=== PATIENT | male | born 1955 | race Caucasian/White ===

== ENCOUNTER 2017-07-20 20:38 | Emergency (ER) | payer OTHER ==
[~2017-07-20] VITALS: Ht 185.4 cm; Wt 77.8 kg
[~2017-07-20 20:38] MED LIST: CELE100C PO; NEXI20CA PO
[2017-07-20 20:50] VITALS: BP 153/84; PULSE 73; RESP 18; TEMP 98.3; O2SAT 98
--- NOTE | 2017-07-21 18:11 | EKG ---
Date Performed: 07/20/2017 Time Performed: 21:03:39 PTAGE: 61 years EKG: Sinus rhythm NORMAL ECG INTERPRETATION BASED ON A DEFAULT AGE OF 38 YEARS NO PREVIOUS TRACING DOCTOR: Caro Sandy Interpretating Date/Time 07/21/2017 18:09:13
== END 2017-07-20 21:20 | disposition left against medical advice (07) ==
LOC: PHED 20:38
DX: R07.9 Chest pain, unspecified (principal)
CPT/HCPCS: 93005; 99281

== ENCOUNTER 2018-02-15 00:04 | Observation (INO) | payer OTHER ==
[~2018-02-15] VITALS: Ht 185.4 cm; Wt 73.8 kg
[2018-02-15] VITALS (8 sets, daily range): BP systolic 154–187; BP diastolic 60–91; PULSE 52–83; RESP 16–20; TEMP 97.4–98.8; O2SAT 95–97
[2018-02-15] MEDS ORDERED: NITROGLYCERIN 0.4 MG SL 25 TABS/BTL SL PRN (00:15)
[2018-02-15] MEDS ORDERED: ASPIRIN 325 MG TAB PO ONE (00:15)
[2018-02-15 00:36] LABS: AUTOMATED NEUTROPHIL # 2.3 TH/MM3 (1.8-7.7); BASOPHIL % 1.3 % (0.0-2.0); EOSINOPHIL % 1.1 % (0.0-4.0); HEMATOCRIT 37.1 % (39.0-51.0); HEMOGLOBIN 12.9 GM/DL (13.0-17.0); LYMPH % 26.5 % (9.0-44.0); MEAN CELL VOLUME 95.8 FL (80.0-100.0); MEAN CORPUSCULAR HEMOGLOBIN 33.3 PG (27.0-34.0); MEAN CORPUSCULAR HGB CONC 34.7 % (32.0-36.0); MEAN PLATELET VOLUME 8.8 FL (7.0-11.0); MONOCYTE # 0.4 TH/MM3 (0-0.9); NEUT % 61.1 % (16.0-70.0); PLATELET COUNT 49 TH/MM3 (150-450); RED BLOOD COUNT 3.87 MIL/MM3 (4.50-5.90); RED CELL DISTRIBUTION WIDTH 14.4 % (11.6-17.2); WHITE BLOOD COUNT 3.7 TH/MM3 (4.0-11.0)
--- NOTE | 2018-02-15 00:36 | PD ---
HPI Chief Complaint: Chest Pain Time Seen by Provider: 00:15 Travel History International Travel<30 days: No Contact w/Intl Traveler<30days: No History of Present Illness HPI 62yo M with PMH of GERD on nexium here with c/o midsternal chest pain for 2 hours today. Pt was just sitting when it started. It is pressure like and nonradiating. Has tingling in right hand. Denies any sob, diaphoresis, nausea , vomiting. Denies any fever, cough, abdominal pain, focal weakness. Pt has never had this pain before. Does not have a hand cigar maker. +Cig smoker. Denies any cocaine or drug use. PFSH Past Medical History GERD: Yes Social History Alcohol Use: Yes (ONCE A WEEK COCKTAILS) Tobacco Use: Yes (09/14 PPD) Substance Use: No Allergies-Medications (Allergen,Severity, Reaction): Coded Allergies: No Known Allergies (Unverified Allergy, Unknown, 02/15/18) Reported Meds & Prescriptions Reported Meds & Active Scripts Active Reported Nexium (Esomeprazole DR) 40 Mg Capdr 40 Mg PO DAILY Review of Systems Except as stated in HPI: all other systems reviewed are Neg Physical Exam Narrative GENERAL: 62yo M in mild distress. SKIN: Focused skin assessment warm/dry. HEAD: Atraumatic. Normocephalic. EYES: Pupils equal and round. No scleral icterus. No injection or drainage. ENT: No nasal bleeding or discharge. Mucous membranes pink and moist. NECK: Trachea midline. No JVD. CARDIOVASCULAR: Regular rate and rhythm. No murmur appreciated. RESPIRATORY: No accessory muscle use. Clear to auscultation. Breath sounds equal bilaterally. GASTROINTESTINAL: Abdomen soft, non-tender, nondistended. MUSCULOSKELETAL: No obvious deformities. No clubbing. No cyanosis. No edema. NEUROLOGICAL: Awake and alert. No obvious cranial nerve deficits. Motor grossly within normal limits. Normal speech. PSYCHIATRIC: Appropriate mood and affect; insight and judgment normal. Data Data Last Documented VS Vital Signs Date Time Temp Pulse Resp B/P (MAP) Pulse Ox O2 Delivery O2 Flow Rate FiO2 02/15/18 01:17 76 16 154/76 (102) 95 Room Air 02/15/18 00:10 98.8 Orders Orders Basic Metabolic Panel (Bmp) (02/15/18 00:15) Complete Blood Count With Diff (02/15/18 00:15) Magnesium (Mg) (02/15/18 00:15) Prothrombin Time / Inr (Pt) (02/15/18 00:15) Act Partial Throm Time (Ptt) (02/15/18 00:15) Troponin I (02/15/18 00:15) Chest, Single Ap (02/15/18 00:15) Aspirin (Aspirin) (02/15/18 00:15) Nitroglycerin Sl (Nitrostat Sl) (02/15/18 00:15) Potassium Chloride (Kcl) (02/15/18 01:00) Potassium Chlor 20 Meq Premix (Kcl 20 Me (02/15/18 01:00) Place In Observation (02/15/18 01:49) Activity Bed Rest With Brp (02/15/18 01:49) Vital Signs (Adult) Q4H (02/15/18 01:49) Cardiac Rhythm .As Directed (02/15/18 01:49) Notify Dr: Other .PRN (02/15/18 01:49) Notify Parameters (02/15/18 01:49) Resp Oxygen Nasal Cannula (02/15/18 ) Diet Npo (02/15/18 Breakfast) Ckmb (Isoenzyme) Profile (02/15/18 03:20) Ckmb (Isoenzyme) Profile (02/15/18 06:20) Troponin I (02/15/18 03:20) Troponin I (02/15/18 06:20) Electrocardiogram (02/15/18 03:20) Electrocardiogram (02/15/18 06:20) ^ Obtain (02/15/18 01:49) Sodium Chlor 0.9% 1000 Ml Inj (Ns 1000 M (02/15/18 01:49) Sodium Chloride 0.9% Flush (Ns Flush) (02/15/18 02:00) Sodium Chloride 0.9% Flush (Ns Flush) (02/15/18 09:00) Acetaminophen (Tylenol) (02/15/18 02:00) Acetamin-Hydrocod 325-7.5 Mg ([place] 7.5 (02/15/18 02:00) Morphine Inj (Morphine Inj) (02/15/18 02:00) Ondansetron Inj (Zofran Inj) (02/15/18 02:00) Hotel Desk Clerk / Telemetry VISHAL.Q8H (02/15/18 01:49) Labs Laboratory Tests Test 02/15/18 00:20 White Blood Count 3.7 TH/MM3 Red Blood Count 3.87 MIL/MM3 Hemoglobin 12.9 GM/DL Hematocrit 37.1 % Mean Corpuscular Volume 95.8 FL Mean Corpuscular Hemoglobin 33.3 PG Mean Corpuscular Hemoglobin Concent 34.7 % Red Cell Distribution Width 14.4 % Platelet Count 49 TH/MM3 Mean Platelet Volume 8.8 FL Neutrophils (%) (Auto) 61.1 % Lymphocytes (%) (Auto) 26.5 % Monocytes (%) (Auto) 10.0 % Eosinophils (%) (Auto) 1.1 % Basophils (%) (Auto) 1.3 % Neutrophils # (Auto) 2.3 TH/MM3 Lymphocytes # (Auto) 1.0 TH/MM3 Monocytes # (Auto) 0.4 TH/MM3 Eosinophils # (Auto) 0.0 TH/MM3 Basophils # (Auto) 0.0 TH/MM3 CBC Comment AUTO DIFF Differential Comment AUTO DIFF CONFIRMED Platelet Estimate LOW Platelet Morphology Comment NORMAL Prothrombin Time 12.0 SEC Prothromb Time International Ratio 1.2 RATIO Activated Partial Thromboplast Time 26.5 SEC Blood Urea Nitrogen 3 MG/DL Creatinine 0.74 MG/DL Random Glucose 97 MG/DL Calcium Level 8.7 MG/DL Magnesium Level 1.5 MG/DL Sodium Level 133 MEQ/L Potassium Level 2.5 MEQ/L Chloride Level 94 MEQ/L Carbon Dioxide Level 25.8 MEQ/L Anion Gap 13 MEQ/L Estimat Glomerular Filtration Rate 106 ML/MIN Troponin I LESS THAN 0.02 NG/ML [facility] Medical Decision Making Medical Screen Exam Complete: Yes Emergency Medical Condition: Yes Interpretation(s) EKG: NSR 78bpm. Normal axis. QRS narrow. ST depression V3-V6 that is new from prior on 07/2017. EKG #2: Sinus bradycardia at 58bpm. Normal axis. ST depression in V3 is improved but there is still mild ST depression in V3-V6. Differential Diagnosis ACS vs. GERD vs. musculoskeletal pain Narrative Course 62yo M with midsternal chest pain that is pressure like. Pt has never had this pain before. EKG concerning with new ST depression compared to prior. Labs reviewed, WBC low at 3.7, H/H low at 12.9/37.1. Thrombocytopenic at 49,000. Pt now said he has cirrhosis years ago. Denies any bleeding. Hypokalemia at 2.5, replaced orally and with IV KCl. Mild hyponatremia at 133. Troponin negative. Magnesium 1.5. CXR negative. Pt given aspirin and is now chest pain free. Did not need nitroglycerin. Never had cardiac work up. Will admit pt for chest pain work up as well as monitoring for hypokalemia. Discussed with Dr. Billy and accepted to her service. Diagnosis Primary Impression: Chest pain Qualified Codes: R07.9 - Chest pain, unspecified Additional Impression: Hypokalemia Admitting Information Admitting Physician Requests: Mariza White DO Feb 15, 2018 00:36
[2018-02-15] MEDS ORDERED: NEXI40CA PO (00:39)
[2018-02-15 00:51] LABS: BICARBONATE 25.8 MEQ/L (21.0-32.0); BLOOD UREA NITROGEN 3 MG/DL (7-18); CALCIUM 8.7 MG/DL (8.5-10.1); CHLORIDE 94 MEQ/L (98-107); CREATININE 0.74 MG/DL (0.60-1.30); GLOMERULAR FILTRATION RATE 106 ML/MIN (>89); GLUCOSE,RANDOM 97 MG/DL (74-106); MAGNESIUM 1.5 MG/DL (1.5-2.5); SODIUM (NA) 133 MEQ/L (136-145); TROPONIN I LESS THAN 0.02 NG/ML (0.02-0.05)
--- NOTE | 2018-02-15 00:54 | RADRPT ---
EXAM DATE: 02/15/2018 12:48 AM EDT AGE/SEX: 62 years / Male INDICATIONS: Chest pain for 2 hours CLINICAL DATA: This is the patient's initial encounter. Patient reports that signs and symptoms have been present for 1 day and indicates a pain score of 7/10. MEDICAL/SURGICAL HISTORY: None. None. COMPARISON: No prior exams available for comparison. FINDINGS: A single AP view of the chest demonstrates the lungs to be symmetrically aerated without evidence of mass, infiltrate or effusion. The cardiomediastinal contours are unremarkable. Osseous structures a re intact. CONCLUSION: No active disease. Electronically signed by: Dmitriy Horn MD 02/15/2018 12:53 AM EDT
[2018-02-15 01:00] LABS: INTERNATIONAL NORMALIZED RATIO 1.2 RATIO
[2018-02-15] MEDS ORDERED: POTASSIUM CHLORIDE 20 MEQ CONTROLLED RELEASE TAB PO ONE ×2 (01:00→09:00)
[2018-02-15] MEDS ORDERED: POTASSIUM CHLOR 20 MEQ PREMIX 100 ML IV ONE (01:00)
[2018-02-15] MEDS ORDERED: SODIUM CHLOR 0.9% 1000 ML INJ 1,000 ML IV SCH (01:49)
[2018-02-15] MEDS ORDERED: ACETAMINOPHEN/HYDROcodone 325 MG/7.5 MG TAB PO PRN (02:00)
[2018-02-15] MEDS ORDERED: ONDANSETRON HCL 4 MG/2 ML VIAL IV PUSH PRN (02:00)
[2018-02-15] MEDS ORDERED: SODIUM CHLORIDE 0.9% FLUSH 10 ML FLUSH IV FLUSH PRN (02:00)
[2018-02-15] MEDS ORDERED: ACETAMINOPHEN 500 MG CPLT PO PRN (02:00)
[2018-02-15] MEDS ORDERED: MORPHINE SULFATE 4 MG/ML INJ IV PUSH PRN (02:00)
[2018-02-15 03:32] LABS: TROPONIN I LESS THAN 0.02 NG/ML (0.02-0.05)
[2018-02-15 07:21] LABS: TROPONIN I LESS THAN 0.02 NG/ML (0.02-0.05)
[2018-02-15 08:27] LABS: CHLORIDE 97 MEQ/L (98-107); SODIUM (NA) 135 MEQ/L (136-145)
[2018-02-15 08:29] LABS: BICARBONATE 27.5 MEQ/L (21.0-32.0); BLOOD UREA NITROGEN 6 MG/DL (7-18); CALCIUM 8.3 MG/DL (8.5-10.1)
[2018-02-15 08:30] LABS: GLUCOSE,RANDOM 92 MG/DL (74-106)
[2018-02-15 08:44] LABS: CREATININE 0.78 MG/DL (0.60-1.30); GLOMERULAR FILTRATION RATE 100 ML/MIN (>89)
--- NOTE | 2018-02-15 08:48 | HHI.HP ---
[facility] Service [facility] Primary Care Physician Non-Staff Admission Diagnosis Chest pain, hypokalemia Diagnoses: (1) Chest pain Diagnosis: Principal (2) Hypokalemia Diagnosis: Principal Chief Complaint: Chest pain Travel History International Travel<30 Days: No Contact w/Intl Traveler <30 Da: No Traveled to Known Affected Are: No History of Present Illness 62-year-old male with known history of gastroesophageal reflux, tobacco use who presented to the emergency department because of chest discomfort. Patient states that he was laying in bed last night his normal state of health until about 1030 when he developed a aching discomfort in the left side of his chest which he states was a 5/10 on a pain scale. He indicates shortly after that he developed a pain in his right arm which he described as a throbbing pain a 7/10 on a pain scale. This persisted and because it did not improve he came to the emergency department for evaluation. Patient denies any nausea, vomiting, shortness of breath, dyspnea, diaphoresis, lightheadedness, dizziness. Patient denies any previous cardiac history or workup. 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 [place] drink approximately 4-32 oz of water daily. He does continue to smoke 1/4 pack of cigarettes a day. Patient was evaluated emergency department given aspirin with complete resolution of his pain. EKG was performed which did show new finding on EKG with inverted T waves in V2 and V3. ER physician recommended patient be observed in the chest pain center for further evaluation. Review of Systems Cardiovascular: COMPLAINS OF: Chest pain Musculoskeletal: COMPLAINS OF: Muscle aches Except as stated in HPI: all other systems reviewed are Neg Past Family Social History Past Medical History Gastroesophageal reflux Chronic tobacco use Past Surgical History Right hip replacement Reported Medications Reported Meds & Active Scripts Active Reported Nexium (Esomeprazole DR) 40 Mg Capdr 40 Mg PO DAILY Allergies: Coded Allergies: No Known Allergies (Unverified Allergy, Unknown, 02/15/18) Family History Family history reviewed and patient denies any history of heart disease, lung disease, diabetes, cancer, seizure, stroke. He is unaware of any significant family history Social History Patient does smoke 1/4 pack of cigars a day since he was 13 years old. He does drink 2 alcoholic beverages on the weekends. Patient denies any illicit drug use Physical Exam Vital Signs Vital Signs Date Time Temp Pulse Resp B/P (MAP) Pulse Ox O2 Delivery O2 Flow Rate FiO2 02/15/18 04:33 98.0 61 20 160/60 (93) 97 02/15/18 03:14 02/15/18 03:06 62 16 166/86 (112) 97 Room Air 02/15/18 03:04 95 21 02/15/18 01:17 76 16 154/76 (102) 95 Room Air 02/15/18 00:46 Room Air 02/15/18 00:35 83 18 160/82 (108) 96 Room Air 02/15/18 00:10 98.8 82 16 187/91 (123) 97 Physical Exam GENERAL: Well-developed, well-nourished, in no acute distress. alert and orientated HEENT: Head is normocephalic without any lesions or masses noted. Facial features are symmetric. Eyes: Pupils equal round reactive to light. Extraocular muscles are intact. Conjunctivae were clear. Oropharyngeal: Pharynx without any erythema edema. Tongue is midline without deviation. Buccal mucosa is moist without any masses or lesions NECK: Supple without any masses. Trachea midline no deviation. No JVD, no bruits are appreciated CARDIAC: Regular rhythm, regular rate. S1/S2 are heard. No murmurs gallops or rubs. LUNGS: Clear to auscultation bilaterally. No wheeze, rhonchi or rales. No use of accessory muscles on inspiration or expiration. ABDOMEN: Soft, nontender. Nondistended. Bowel sounds heard in all 4 quadrants. No organomegaly or masses. Negative rebound, negative guarding EXTREMITIES: No edema, pulses are equal bilaterally. No cyanosis or clubbing NEUROLOGY: Mood and affect appear appropriate. Cranial nerves II through XII grossly intact. Muscle strength 5/5 in upper and lower extremities bilaterally. Deep tendon reflexes are 2+ in upper and lower extremities bilaterally. Laboratory Laboratory Tests Test 02/15/18 00:20 02/15/18 03:05 02/15/18 06:40 White Blood Count 3.7 Red Blood Count 3.87 Hemoglobin 12.9 Hematocrit 37.1 Mean Corpuscular Volume 95.8 Mean Corpuscular Hemoglobin 33.3 Mean Corpuscular Hemoglobin Concent 34.7 Red Cell Distribution Width 14.4 Platelet Count 49 Mean Platelet Volume 8.8 Neutrophils (%) (Auto) 61.1 Lymphocytes (%) (Auto) 26.5 Monocytes (%) (Auto) 10.0 Eosinophils (%) (Auto) 1.1 Basophils (%) (Auto) 1.3 Neutrophils # (Auto) 2.3 Lymphocytes # (Auto) 1.0 Monocytes # (Auto) 0.4 Eosinophils # (Auto) 0.0 Basophils # (Auto) 0.0 CBC Comment AUTO DIFF Differential Comment AUTO DIFF CONFIRMED Platelet Estimate LOW Platelet Morphology Comment NORMAL Prothrombin Time 12.0 Prothromb Time International Ratio 1.2 Activated Partial Thromboplast Time 26.5 Blood Urea Nitrogen 3 6 Creatinine 0.74 Random Glucose 97 92 Calcium Level 8.7 8.3 Magnesium Level 1.5 Sodium Level 133 135 Potassium Level 2.5 3.2 Chloride Level 94 97 Carbon Dioxide Level 25.8 27.5 Anion Gap 13 11 Estimat Glomerular Filtration Rate 106 Troponin I LESS THAN 0.02 LESS THAN 0.02 LESS THAN 0.02 Total Creatine Kinase 280 285 Creatine Kinase MB 1.3 1.6 Result Diagram: 02/15/18 0020 02/15/18 0640 Imaging Last Impressions Chest X-Ray 02/15/18 0015 Signed Impressions: CONCLUSION: No active disease. Caprini VTE Risk Assessment Caprini VTE Risk Assessment: No/Low Risk (score <= 1) Caprini Risk Assessment Model Point Value = 1 Point Value = 2 Point Value = 3 Point Value = 5 Age 41-60 Minor surgery BMI > 25 kg/m2 Swollen legs Varicose veins or History of unexplained or recurrent spontaneous Oral contraceptives or hormone replacement Sepsis (< 1 month) Serious lung disease, including pneumonia (< 1 month) Abnormal pulmonary function Acute myocardial infarction Congestive heart failure (< 1 month) History of inflammatory bowel disease Medical patient at bed rest Age 61-74 Arthroscopic surgery Major open surgery (> 45 min) Laparoscopic surgery (> 45 min) Malignancy Confined to bed (> 72 hours) Immobilizing plaster cast Central venous access Age >= 75 History of VTE Family history of VTE Factor V Leiden Prothrombin [id number] Lupus anticoagulant Anticardiolipin antibodies Elevated serum homocysteine Heparin-induced thrombocytopenia Other congenital or acquired thrombophilia Stroke (< 1 month) Elective arthroplasty Hip, pelvis, or leg fracture Acute spinal cord injury (< 1 month) Prophylaxis Regimen Total Risk Factor Score Risk Level Prophylaxis Regimen 0-1 Low Early ambulation 2 Moderate Order ONE of the following: *Sequential Compression Device (SCD) *Heparin 5000 units SQ BID 3-4 Higher Order ONE of the following medications: *Heparin 5000 units SQ TID *Enoxaparin/Lovenox 40 mg SQ daily (WT < 150 kg, CrCl > 30 mL/min) *Enoxaparin/Lovenox 30 mg SQ daily (WT < 150 kg, CrCl > 10-29 mL/min) *Enoxaparin/Lovenox 30 mg SQ BID (WT < 150 kg, CrCl > 30 mL/min) AND/OR *Sequential Compression Device (SCD) 5 or more Highest Order ONE of the following medications: *Heparin 5000 units SQ TID (Preferred with Epidurals) *Enoxaparin/Lovenox 40 mg SQ daily (WT < 150 kg, CrCl > 30 mL/min) *Enoxaparin/Lovenox 30 mg SQ daily (WT < 150 kg, CrCl > 10-29 mL/min) *Enoxaparin/Lovenox 30 mg SQ BID (WT < 150 kg, CrCl > 30 mL/min) AND *Sequential Compression Device (SCD) Assessment and Plan Assessment and Plan Chest pain, atypical -Patient with increased risk factors include age, male, tobacco use -Patient has been ruled out for acute coronary event with serial cardiac enzymes that have remained negative -Serial EKGs do show inverted T waves in lead V2 and V3, this appears to be a change when comparing to July 2017. -Myocardial perfusion study was performed and indicated no signs of ischemia, low risk -Patient continued on aspirin, nitroglycerin as needed, morphine for pain control -Continue monitor telemetry Hypokalemia -Patient is not on any medications or indicate any significant nausea, vomiting , diarrhea -Patient does admit to significant water intake with 1 gallon of water daily, remaining electrolytes to also reflect possible increase water intake with low sodium and low chloride. -Status post potassium replacement -Patient counseled on decreasing amount of water daily and adding in sports drinks for elective replacement Elevated blood pressure readings -During hospitalization patient has had psych blood pressure anywhere from 154- 187. -This was discussed with the patient extensively, he indicates that his prior medical doctor is monitoring his blood pressure at this time as well as he is monitoring at home. He has follow-up with the prior medical doctor this coming week in order to reevaluate his blood pressure and possibly start him on medication. -Patient defers any management at this time. He is going to await his appointment with his primary medical doctor DVT prevention -Low risk, early ambulation Discharge disposition Discharge home in stable condition Activity: Ad susie. Diet: Regular diet Medication per medication reconciliation Follow-up with primary medical doctor in 1 week Problem Qualifiers (1) Chest pain: Qualified Codes: R07.9 - Chest pain, unspecified Zak Chavez Feb 15, 2018 08:48
[2018-02-15] MEDS ORDERED: SODIUM CHLORIDE 0.9% FLUSH 10 ML FLUSH IV FLUSH SCH (09:00)
[2018-02-15] MEDS ORDERED: REGADENOSON INJ 0.4 MG/5 ML SYR IV ONE (10:34)
--- NOTE | 2018-02-15 13:09 | RADRPT ---
EXAM DATE: 02/15/2018 11:18 AM EDT AGE/SEX: 62 years / Male INDICATIONS:Angina. Abnormal EKG Mid chest pain for one day. CLINICAL DATA: This is the patient's initial encounter. Patient reports that signs and symptoms have been present for 1 day and indicates a pain score of 7/10. MEDICAL/SURGICAL HISTORY: Gastroesophageal reflux disease. . Hip replacement. COMPARISON: No prior exams available for comparison. No external comparison. DOSE: 8.7 mCi Tc 99m Myoview at rest 26.2 mCi [id number] at stress 0.4 mg Lexiscan STRESS SYMPTOMS: None. EJECTION FRACTION: 65 % TECHNIQUE: The patient underwent pharmacologic stress with infusion of prescribed dose. Continuous ECG tracing was monitored during stress. Gated SPECT imaging was performed after stress and conventi onal SPECT imaging was performed at rest. The examination was performed on a SPECT/CT scanner, both attenuation and non-corrected datasets were reviewed. FINDINGS: Distribution: The maximum perfused segment at stress is in the inferoseptal wall. Perfusion Study: The pattern of perfusion at stress is within normal limits. Gated Study: There are intact wall motion and wall thickening without hypokinetic or dyskinetic segm ents. The ejection fraction is calculated at 65%. RISK CATEGORY: Low (<1% Annual Motality Rate) CONCLUSION: 1. Left ventricle perfusion is within normal limits. No fixed or reversible perfusion defect is iden tified. 2. Normal left ventricle ejection fraction and wall motion. Electronically signed by: Steven Catalan MD 02/15/2018 1:08 PM EDT
--- NOTE | 2018-02-15 13:19 | HHI.DCPOC ---
Discharge Care Plan Diagnosis: (1) Chest pain (2) Hypokalemia Goals to Promote Your Health * To prevent worsening of your condition and complications * To maintain your health at the optimal level Directions to Meet Your Goals Take your medications as prescribed Follow your dietary instruction Follow activity as directed Keep your appointments as scheduled Take your immunizations and boosters as scheduled If your symptoms worsen call your PCP, if no PCP go to Urgent Care Center or Emergency Room Smoking is Dangerous to Your Health. Avoid second hand smoke Call the 24-hour hour crisis hotline for domestic abuse at Zak Chavez Feb 15, 2018 13:19
--- NOTE | 2018-02-15 14:33 | TR ---
Date Performed: 02/15/2018 Time Performed: 10:43:26 DOCTOR: Bill Kapadia DRUG LIST: CLINICAL HISTORY: ANGINA REASON FOR TEST: Angina REASON FOR ENDING: OBSERVATION: CONCLUSION: Lexiscan stress test was performed under standard four minute protocol. Radionuclide was injected one minute prior to ending the test. No electrocardiographic abormalities were present to suggest ischemia. Nuclear imaging and interpretation are pending. COMMENTS:
--- NOTE | 2018-02-15 15:35 | EKG ---
Date Performed: 02/15/2018 Time Performed: 05:33:12 PTAGE: 62 years EKG: Sinus rhythm WITH OCCASIONAL VENTRICULAR PREMATURE COMPLEXES POSSIBLE LEFT ATRIAL ENLARGEMENT MODERATE T-WAVE ABN ORMALITY, CONSIDER ANTERIOR ISCHEMIA Since previous tracing, no significant change noted ABNORMAL ECG PREVIOUS TRACING : 07/20/2017 21.03 DOCTOR: Cheri Blount Interpretating Date/Time 02/15/2018 15:33:05
--- NOTE | 2018-02-15 18:38 | EKG ---
Date Performed: 02/15/2018 Time Performed: 03:14:12 PTAGE: 62 years EKG: SINUS BRADYCARDIA POSSIBLE LEFT ATRIAL ENLARGEMENT Nonspecific septal T wave changes. Since previous tracing, no significant change noted BORDERLINE ECG PREVIOUS TRACING : 07/20/2017 21.03 DOCTOR: Cheri Blount Interpretating Date/Time 02/16/2018 06:50:22
== END 2018-02-15 14:41 | disposition home or self-care (01) ==
LOC: PHED 00:04 → PHEDA 01:52 → PH3A 03:23
PROVIDERS: ADMIT Family Medicine; ATTEND Family Medicine
DX: R07.9 Chest pain, unspecified (principal); R20.2 Paresthesia of skin; K21.9 Gastro-esophageal reflux disease without esophagitis; F17.200 Nicotine dependence, unspecified, uncomplicated; R00.1 Bradycardia, unspecified; D72.819 Decreased white blood cell count, unspecified; D69.6 Thrombocytopenia, unspecified; K74.60 Unspecified cirrhosis of liver; E87.6 Hypokalemia; E87.1 Hypo-osmolality and hyponatremia; R03.0 Elevated blood-pressure reading, without diagnosis of hypertension; R94.31 Abnormal electrocardiogram [ECG] [EKG]
CPT/HCPCS: 71045; 78452; 80048; 82550; 82552; 83735; 84484; 85025; 85610; 85730; 93005; 93017; 96365; 96366; 99285; A9502; G0378; J2785; J3480; J7030

== ENCOUNTER 2018-04-02 16:52 | Observation (INO) ==
--- NOTE | 2018-04-02 17:59 | ED ---
[facility] General Chief complaint: GI Bleed Stated complaint: BLOOD IN URINE/STOOL Time Seen by Provider: 04/02/18 17:43 Source: patient Mode of arrival: ambulatory Limitations: no limitations History of Present Illness HPI narrative: 62yo M with PMH of cirrhosis here with c/o feeling lethargic, gross hematuria and dark stool for a few days. Denies any fever, chest pain, sob, n/v, abdominal pain. +Diarrhea. Pt went to a new primary care physician today and was sent to the ED. Related Data Home Medications Medication Instructions Recorded Confirmed esomeprazole magnesium [Nexium] 40 mg PO DAILY 04/02/18 04/02/18 Allergies Allergy/AdvReac Type Severity Reaction Status Date / Time No Known Allergies Allergy Verified 04/02/18 17:35 Review of Systems ROS Unobtainable All other systems reviewed negative except as stated in [facility] Medical History Medical History GERD (gastroesophageal reflux disease) (Acute) History of cirrhosis of liver (Acute) Surgical History Surgical History History of right hip replacement (Acute) Social History Social History Substance History: No History of Abuse Second Hand Smoke Exposure: No Smoking Status: Heavy tobacco smoker Tobacco Type: Cigarettes How Often Do You Have a Drink Containing Alcohol: 2 to 4 times a month Recent Travel in [facility] within the Last 8 Weeks: No Recent Out of Country Travel within the Last 8 Weeks: No Immunization History Tetanus Immunization: Unsure Hx Influenza Vaccine This Season: Yes Exam Narrative Exam Narrative: GENERAL: 62yo M in mild distress. SKIN: Focused skin assessment warm/dry. HEAD: Atraumatic. Normocephalic. EYES: Pupils equal and round. +scleral icterus. No injection or drainage. ENT: No nasal bleeding or discharge. Mucous membranes pink and moist. NECK: Trachea midline. No JVD. CARDIOVASCULAR: Regular rate and rhythm. No murmur appreciated. RESPIRATORY: No accessory muscle use. Clear to auscultation. Breath sounds equal bilaterally. GASTROINTESTINAL: Abdomen soft, non-tender, nondistended. RECTAL: Brown stool. +Hemaprompt. MUSCULOSKELETAL: No obvious deformities. No clubbing. No cyanosis. No edema. NEUROLOGICAL: Awake and alert. No obvious cranial nerve deficits. Motor grossly within normal limits. Normal speech. PSYCHIATRIC: Appropriate mood and affect; insight and judgment normal. Procedures Hemaprompt Stool Procedural Steps Taken: specimen placed in appropriate test area Hemaprompt Stool Result: positive Course Initial Documented Vital Signs Temperature 98.9 F 04/02/18 16:54 Pulse Rate 80 04/02/18 16:54 Respiratory Rate 16 04/02/18 16:54 Blood Pressure 159/77 H 04/02/18 16:54 Pulse Oximetry 99 04/02/18 16:54 Last Documented Vital Signs Temperature 98.9 F 04/02/18 16:54 Pulse Rate 69 04/02/18 23:15 Respiratory Rate 18 04/02/18 22:12 Blood Pressure 156/79 H 04/02/18 22:12 Pulse Oximetry 96 04/02/18 23:15 Medical Decision Making MDM Narrative Medical decision making narrative: 62yo M here with generalized weakness, gross hematuria, blood in stool for a few days. Pt has history of cirrhosis. Labs reviewed, no leukocytosis. H/H low a 12.3/34.7. Hypokalemia at 2.5. Hyponatremia at 131. Hemaprompt positive. Pt has not had colonoscopy or endoscopy for 5 years. Pt given KCl 30mEq PO, will give IV KCl as well and monitor him overnight on telemetry with GI consult. Differential Diagnosis Differential Diagnosis: Bleeding from thrombocytopenia vs. GI bleed vs. hyperammonemia Lab Data Result diagrams: 04/02/18 18:03 04/02/18 18:03 Lab Results 04/02/18 04/02/18 04/02/18 Range/Units 18:03 18:03 18:03 CBC w Diff Slide review pending WBC 5.4 (4.0-11.0) th/mm3 RBC 3.57 L (4.50-5.90) mil/mm3 Hgb 12.3 L (13.0-17.0) gm/dL Hct 34.7 L (39.0-51.0) % MCV 97.3 (80.0-100.0) fL MCH 34.6 H (27.0-34.0) pg MCHC 35.5 (32.0-36.0) % RDW 16.6 (11.6-17.2) % Plt Count 59 L (150-450) th/mm3 MPV 9.3 (7.0-11.0) fL WBC Differential Manual diff final Seg Neuts % (Manual) 65 (16-70) % Band Neuts % (Manual) 2 (0-6) % Lymphocytes % (Manual) 22 (9-44) % Monocytes % (Manual) 9 H (0-8) % Eosinophils % (Manual) 1 (0-4) % Basophils % (Manual) 1 (0-2) % Abs Neuts (Manual) 3.6 (1.8-7.7) th/mm3 Differential Comment . Platelet Estimate Low L (Normal) Platelet Morphology Normal (Normal) RBC Morphology Normal (Normal) PT 13.3 H (9.8-11.6) sec INR 1.3 Ratio APTT 27.9 (24.3-30.1) sec Sodium 131 L (136-145) meq/L Potassium 2.5 L* (3.5-5.1) meq/L Chloride 93 L (98-107) meq/L Carbon Dioxide 30.3 (21.0-32.0) meq/L Anion Gap 8 (5-15) meq/L BUN 14 (7-18) mg/dL Creatinine 1.10 (0.60-1.30) mg/dL Estimated GFR 67 L (>89) mL/min Random Glucose 97 (74-106) mg/dL Calcium 8.4 L (8.5-10.1) mg/dL Magnesium 1.7 (1.5-2.5) mg/dL Total Bilirubin 14.4 H (0.2-1.0) mg/dL AST 170 H (15-37) U/L ALT 44 (12-78) U/L Alkaline Phosphatase 154 H (45-117) U/L Ammonia (11-32) mcmol/L Total Creatine Kinase 284 (39-308) U/L Total Protein 7.1 (6.4-8.2) g/dL Albumin 3.0 L (3.4-5.0) g/dL Urine Color (Yellw/Straw) Urine Clarity (Clear) Urine pH (5.0-8.5) Ur Specific [place] (1.002-1.035) Urine Protein (Neg-Trace) mg/dL Urine Glucose (UA) (Negative) mg/dL Urine Ketones (Negative) mg/dL Urine Occult Blood (Negative) Urine Nitrate (Negative) Urine Bilirubin (Negative) Urine Ictotest (Negative) Urine Urobilinogen (Less than 2) mg/dL Ur Leukocyte Esterase (Negative) Urine RBC (0-3) /hpf Urine WBC (0-5) /hpf Ur Squamous Epith Cells (0-5) /hpf Micro UA Comment Urine Culture Comments Blood Type Blood Type Recheck Antibody Screen 04/02/18 04/02/18 04/02/18 Range/Units 18:03 18:03 18:57 CBC w Diff WBC (4.0-11.0) th/mm3 RBC (4.50-5.90) mil/mm3 Hgb (13.0-17.0) gm/dL Hct (39.0-51.0) % MCV (80.0-100.0) fL MCH (27.0-34.0) pg MCHC (32.0-36.0) % RDW (11.6-17.2) % Plt Count (150-450) th/mm3 MPV (7.0-11.0) fL WBC Differential Seg Neuts % (Manual) (16-70) % Band Neuts % (Manual) (0-6) % Lymphocytes % (Manual) (9-44) % Monocytes % (Manual) (0-8) % Eosinophils % (Manual) (0-4) % Basophils % (Manual) (0-2) % Abs Neuts (Manual) (1.8-7.7) th/mm3 Differential Comment Platelet Estimate (Normal) Platelet Morphology (Normal) RBC Morphology (Normal) PT (9.8-11.6) sec INR Ratio APTT (24.3-30.1) sec Sodium (136-145) meq/L Potassium (3.5-5.1) meq/L Chloride (98-107) meq/L Carbon Dioxide (21.0-32.0) meq/L Anion Gap (5-15) meq/L BUN (7-18) mg/dL Creatinine (0.60-1.30) mg/dL Estimated GFR (>89) mL/min Random Glucose (74-106) mg/dL Calcium (8.5-10.1) mg/dL Magnesium (1.5-2.5) mg/dL Total Bilirubin (0.2-1.0) mg/dL AST (15-37) U/L ALT (12-78) U/L Alkaline Phosphatase (45-117) U/L Ammonia Less than 10 L (11-32) mcmol/L Total Creatine Kinase (39-308) U/L Total Protein (6.4-8.2) g/dL Albumin (3.4-5.0) g/dL Urine Color [place] H (Yellw/Straw) Urine Clarity Clear (Clear) Urine pH 6.5 (5.0-8.5) Ur Specific [place] 1.010 (1.002-1.035) Urine Protein 30 H (Neg-Trace) mg/dL Urine Glucose (UA) 100 H (Negative) mg/dL Urine Ketones 15 H (Negative) mg/dL Urine Occult Blood Negative (Negative) Urine Nitrate Positive H (Negative) Urine Bilirubin Large H (Negative) Urine Ictotest Positive H (Negative) Urine Urobilinogen 8 or greater (Less than 2) mg/dL Ur Leukocyte Esterase Trace H (Negative) Urine RBC 0-3 (0-3) /hpf Urine WBC 6-8 H (0-5) /hpf Ur Squamous Epith Cells 0-5 (0-5) /hpf Micro UA Comment Culture indicated Urine Culture Comments Culture indicated Blood Type A Positive Blood Type Recheck Required Antibody Screen Negative Discharge Plan Discharge Disposition Patient Disposition: 30 Still Patient Discharge Details Diagnosis: Acute hypokalemia, GI (gastrointestinal bleed) Physicians Team ED Provider: Mariza Christine Primary Care Provider: Primary Care Abby Flores Attending Provider: Effie Billy Other Providers: Alexei Piña Discharge Interventions Interventions: ED Discharge Assessment Last Done: 04/02/18 22:12 Status ED Status: Left Department Discharge Information Discharge Date/Time: 04/02/18 22:13
[2018-04-02 18:18] LABS: Hematocrit 34.7 % (39.0-51.0); Hemoglobin 12.3 gm/dL (13.0-17.0); Mean Corpuscular HGB Conc 35.5 % (32.0-36.0); Mean Corpuscular Hemoglobin 34.6 pg (27.0-34.0); Mean Corpuscular Volume 97.3 fL (80.0-100.0); Mean Platelet Volume 9.3 fL (7.0-11.0); Platelet Count 59 th/mm3 (150-450); Red Blood Count 3.57 mil/mm3 (4.50-5.90); Red Cell Distribution Width 16.6 % (11.6-17.2); White Blood Count 5.4 th/mm3 (4.0-11.0)
[2018-04-02 18:23] LABS: Activated Partial Thrombo Time 27.9 sec (24.3-30.1); INR 1.3 Ratio; Prothrombin Time 13.3 sec (9.8-11.6)
[2018-04-02 18:28] LABS: Alanine Aminotransferase 44 U/L (12-78); Alkaline Phosphatase 154 U/L (45-117); Anion Gap 8 meq/L (5-15); Aspartate Aminotransferase 170 U/L (15-37); Blood Urea Nitrogen 14 mg/dL (7-18); Calcium 8.4 mg/dL (8.5-10.1); Carbon Dioxide 30.3 meq/L (21.0-32.0); Chloride 93 meq/L (98-107); Glomerular Filtration Rate 67 mL/min (>89); Glucose,Random 97 mg/dL (74-106); Sodium 131 meq/L (136-145); Total Protein 7.1 g/dL (6.4-8.2)
[2018-04-02 18:31] LABS: Potassium 2.5 meq/L (3.5-5.1)
[2018-04-02 19:11] LABS: Bilirubin,Urine Large (Negative); Clarity,Urine Clear (Clear); Glucose,Urine (UA) 100 mg/dL (Negative); Leukocyte Esterase,Urine Trace (Negative); Nitrite,Urine Positive (Negative); PH,Urine 6.5 (5.0-8.5); Urobilinogen,Urine 8 or Greater mg/dL (Less than 2)
[2018-04-02 19:13] LABS: Color,Urine Amber (Yellw/Straw); Ictotest,Urine Positive (Negative)
[2018-04-02 19:15] LABS: RBC,Urine 0-3 /hpf (0-3); Squamous Epithelial Cell,Urine 0-5 /hpf (0-5)
[2018-04-02 19:17] LABS: Eosinophils 1 % (0-4); Lymphocytes 22 % (9-44); Monocytes 9 % (0-8)
[2018-04-02 19:18] LABS: Platelet Morphology Normal (Normal); RBC Morphology Normal (Normal)
[2018-04-02] MEDS ORDERED: Potassium Chlor 20 mEq Premix 20 MEQ/100 ML PIGGYBACK IV.SIG ONE ×2 (19:21→19:27)
[2018-04-02 19:39] LABS: Creatine Kinase 284 U/L (39-308); Magnesium 1.7 mg/dL (1.5-2.5)
[2018-04-02] MEDS: Sod Chloride 0.9% Inj 1,000 ML IV.CONT SCH (19:57)
[2018-04-03 00:13] LABS: Hematocrit 33.3 % (39.0-51.0); Hemoglobin 11.8 gm/dL (13.0-17.0)
[2018-04-03] MEDS: Sod Chloride 0.9% Inj 1,000 ML IV.CONT SCH ×2 (05:11→15:11)
[2018-04-03 06:02] LABS: Hematocrit 33.8 % (39.0-51.0); Hemoglobin 11.6 gm/dL (13.0-17.0); Mean Corpuscular HGB Conc 34.1 % (32.0-36.0); Mean Corpuscular Hemoglobin 34.1 pg (27.0-34.0); Mean Platelet Volume 9.4 fL (7.0-11.0); Platelet Count 50 th/mm3 (150-450); Red Blood Count 3.39 mil/mm3 (4.50-5.90); Red Cell Distribution Width 16.4 % (11.6-17.2); White Blood Count 4.6 th/mm3 (4.0-11.0)
[2018-04-03 06:19] LABS: Chloride 100 meq/L (98-107); Sodium 135 meq/L (136-145)
[2018-04-03 06:20] LABS: Eosinophils 1 % (0-4); Lymphocytes 32 % (9-44); Monocytes 4 % (0-8); Platelet Morphology Normal (Normal); Target Cells 2+
[2018-04-03 06:32] LABS: Anion Gap 8 meq/L (5-15); Blood Urea Nitrogen 10 mg/dL (7-18); Calcium 7.5 mg/dL (8.5-10.1); Carbon Dioxide 27.2 meq/L (21.0-32.0); Glomerular Filtration Rate Greater Than 89 mL/min (>89); Glucose,Random 78 mg/dL (74-106)
[2018-04-03] MEDS: Pantoprazole Inj 40 MG Vial IV.PUSH SCH (08:48)
[2018-04-03] MEDS: Potassium Chlor 20 mEq Premix 20 MEQ/100 ML PIGGYBACK IV.SIG SCH ×2 (08:48→10:43)
[2018-04-03 11:24] LABS: Hematocrit 34.8 % (39.0-51.0); Hemoglobin 11.8 gm/dL (13.0-17.0)
[2018-04-03 18:26] LABS: Hematocrit 36.6 % (39.0-51.0); Hemoglobin 12.7 gm/dL (13.0-17.0)
--- NOTE | 2018-04-03 19:37 | P.HP ---
History of Present Illness Primary Care Physician: No Primary Care Physician History of Present Illness: This is a 62-year-old male with a history of cirrhosis and gastroesophageal reflux disease. For the last 2 days he has noticed a change in his stool patterns with onset of diarrhea associated with dark brown stools. He felt that might be an indication of bleeding since in the past he was worked up for GI bleed. He decided to come to the ER for further evaluation. He denies any abdominal pain. He points to his urine drug which has dark brownish colored urine within it. He feels that might be blood in his urine. He admits he has drunk heavily in the past but currently he states he only drinks 2 drinks every Monday. He is not aware of his jaundiced state. Review of Systems Constitutional: Denies anorexia, Denies body ache(s), Denies chills, Denies daytime sleepiness, Denies excessive sweating, Denies fatigue, Denies fever(s), Denies headache(s), Denies increased appetite, Denies lack of energy, Denies malaise, Denies night sweats, Denies weakness, Denies weight gain, Denies weight loss, Denies other Eyes: Denies blind spots, Denies blurry vision, Denies bulging eyes, Denies change in vision, Denies double vision, Denies discharge, Denies dry eyes, Denies floaters, Denies irritation, Denies itchy eyes, Denies loss of vision, Denies pain, Denies requires corrective lenses, Denies sensitivity to light, Denies other Ears, Nose, Mouth, and Throat: Denies abnormal hearing, Denies bleeding gums, Denies bad breath, Denies change in voice, Denies dental pain, Denies difficulty swallowing, Denies dizziness, Denies dry mouth, Denies ear discharge , Denies ear pain, Denies facial pain, Denies headache(s), Denies hearing loss, Denies hoarseness, Denies lip swelling, Denies nosebleed, Denies mouth lesions, Denies mouth pain, Denies nasal congestion, Denies nasal discharge, Denies nasal obstruction, Denies nasal trauma, Denies neck lump, Denies neck pain, Denies nose pain, Denies pain with swallowing, Denies poor balance, Denies post nasal drip, Denies ringing in the ears, Denies sinus pain, Denies sinus pressure , Denies sore throat, Denies throat swelling, Denies tongue swelling, Denies other Cardiovascular: Denies chest pain, Denies chest pain at rest, Denies chest pain with activity, Denies excessive sweating, Denies fainting, Denies fast heart rate, Denies foot swelling, Denies generalized swelling, Denies irregular heart rhythm, Denies leg pain with activity, Denies leg sores, Denies leg swelling, Denies lightheadedness, Denies radiating jaw, neck or arm pain, Denies rapid, pounding, or irregular heartbeat, Denies shortness of breath, Denies shortness of breath with activity, Denies shortness of breath when lying down, Denies shortness of breath causing sudden awakening, Denies slow heart rate, Denies other Respiratory: Denies change in phlegm color, Denies chest congestion, Denies cough, Denies coughing up blood, Denies excessive phlegm production, Denies pain on inspiration, Denies pain with cough, Denies shortness of breath, Denies shortness of breath with activity, Denies snoring, Denies stridor, Denies wheezing, Denies other Gastrointestinal: Reports black, tarry stools, Reports change in bowel habits, Reports loose stools, Denies abdominal pain, Denies bloating, Denies bright, red blood in stools, Denies constant urge to pass stool, Denies change in stools , Denies constipation, Denies cramping, Denies difficulty swallowing, Denies excessive passing of gas Genitourinary: Reports blood in urine, Denies blood in semen, Denies decreased urination, Denies difficulty urinating, Denies difficulty with ejaculations, Denies erectile dysfunction, Denies genital lesions, Denies genital pain, Denies painful urination, Denies side pain, Denies frequent nighttime urination , Denies painful ejaculations, Denies penile discharge, Denies scrotal swelling , Denies testicle lump, Denies testicle pain, Denies urinary frequency, Denies urinary hesitancy, Denies urinary incontinence, Denies urinary urgency, Denies other Musculoskeletal: Denies abnormal walking, Denies back pain, Denies body aches, Denies decreased muscle mass, Denies deformity, Denies joint pain, Denies joint swelling, Denies limited joint movement, Denies loss of height, Denies muscle cramps, Denies muscle weakness, Denies neck pain, Denies numbness, Denies radiating pain into limb, Denies stiffness, Denies tingling, Denies other Neurologic: Denies abnormal hearing, Denies abnormal movements, Denies abnormal speech, Denies abnormal walking, Denies behavioral changes, Denies burning sensations, Denies confusion, Denies dizziness, Denies fainting, Denies frequent falls, Denies headache(s), Denies lack of coordination, Denies localized weakness, Denies loss of vision, Denies memory loss, Denies numbness, Denies other visual disturbances, Denies radiating pain, Denies restless legs, Denies convulsions, Denies seizure-like activity, Denies sensory deficit, Denies tingling, Denies tingling/numbness/burning sensations, Denies tremor(s), Denies unsteadiness, Denies weakness, Denies other Psychiatric: Denies abnormal sleep pattern, Denies anxiety, Denies behavioral changes, Denies change in appetite, Denies change in sex drive, Denies confusion , Denies depression, Denies difficulty concentrating, Denies hearing things others do not hear, Denies hopelessness, Denies irritability, Denies lack of enjoyment, Denies memory loss, Denies mood swings, Denies panic attacks, Denies paranoia, Denies seeing things others do not see, Denies sensing things others do not sense, Denies tactile hallucinations, Denies thoughts of hurting/killing others, Denies thoughts of hurting/killing yourself, Denies other Endocrine: Denies cold intolerance, Denies excessive sweating, Denies flushing, Denies heat intolerance, Denies increased hunger, Denies increased thirst, Denies increased urination, Denies rapid, pounding, or irregular heartbeat, Denies other PMFSH - History History Provided By: Patient, Medical Record - Medical History Medical History: Medical History (Last Updated 04/02/18 @ 17:30 by Ira Mas RN) GERD (gastroesophageal reflux disease) History of cirrhosis of liver - Surgical History Surgical History: Surgical History (Last Updated 04/02/18 @ 17:30 by Ira Mas RN) History of right hip replacement - Tobacco History Second Hand Smoke Exposure: No Tobacco Use In Past 30 Days: Yes Smoking Status: Heavy tobacco smoker Tobacco Type: Cigarettes - Alcohol History How Often Do You Have a Drink Containing Alcohol: 2 to 4 times a month - Substance Use History Substance History: No History of Abuse - Travel History Recent Travel in the [place] Within the Last 8 Weeks: No Recent Travel Out of the Country Within the Last 8 Weeks: No - Immunization History Tetanus Immunization: Unsure Hx Influenza Vaccine This Season: Yes Medications and Allergies Active Medications: Active Medications Ondansetron HCl (Zofran Inj) 4 mg IV.PUSH Q6H PRN PRN Reason: NAUSEA Pantoprazole Sodium (Protonix Inj) 40 mg IV.PUSH DAILY [facility] Last Admin: 04/03/18 08:48 Dose: 40 mg Sodium Chloride (Ns Flush) 2 ml IV.FLUSH BID [facility] Last Admin: 04/03/18 08:48 Dose: Not Given Sodium Chloride (Ns Flush) 2 ml IV.FLUSH PRN PRN PRN Reason: FLUSH AFTER USING IV ACCESS Allergies Allergy/AdvReac Type Severity Reaction Status Date / Time No Known Allergies Allergy Verified 04/02/18 17:35 Home Medications Medication Instructions Recorded Confirmed Type esomeprazole magnesium [Nexium] 40 mg PO DAILY 04/02/18 04/02/18 History Exam Vital signs: Vital Signs 04/02/18 20:06 04/02/18 22:12 04/02/18 23:15 Temperature Pulse Rate 69 79 69 Respiratory Rate 18 18 Blood Pressure 181/83 H 156/79 H Pulse Oximetry 98 98 96 04/03/18 00:00 04/03/18 04:00 04/03/18 07:00 Temperature 99.4 F 98.4 F Pulse Rate 70 73 Respiratory Rate 18 18 Blood Pressure 155/75 H 150/70 H Pulse Oximetry 95 98 98 04/03/18 07:11 04/03/18 09:04 04/03/18 12:14 Temperature 98.1 F 98.2 F Pulse Rate 61 61 60 Respiratory Rate 16 16 Blood Pressure 168/72 H 165/74 H Pulse Oximetry 98 98 04/03/18 16:00 Temperature 99.1 F Pulse Rate 77 Respiratory Rate 16 Blood Pressure 132/65 Pulse Oximetry 98 Intake & Output 04/03/18 04/03/18 04/04/18 06:59 18:59 06:59 Intake Total 1400 / 1400 2000 / 1999 Output Total 300 / 300 Balance 1100 / 1100 1999 Weight 76.7 kg Intake: IV 1200 / 1200 1200 / 1200 NS Inj 1,000 ML @ 100 mls/hr IV 1000 / 1000 1000 / 1000 .CONT .Q10H [facility] Rx#:[id number] KCl 20 mEq Premix Inj 20 meq In 100 / 100 200 / 200 100 ml @ 50 mls/hr IV.SIG Q2H [place] Rx#:[id number] Rocephin Inj 1,000 MG In NS Inj 100 / 100 100 ML @ 200 mls/hr IV.SIG ONCE ONE Rx#:[id number] Oral 200 / 200 800 / 800 Output: Urine 300 / 300 Other: # Voids 1 3 Narrative: GENERAL: Alert and oriented 3, anxious about going home SKIN: Warm and dry. Jaundiced HEAD: Atraumatic. Normocephalic. EYES: Pupils equal and round. No scleral icterus. No injection or drainage. Scleral icterus ENT: No nasal bleeding or discharge. Mucous membranes pink and moist. NECK: Trachea midline. No JVD. CARDIOVASCULAR: Regular rate and rhythm. RESPIRATORY: No accessory muscle use. Clear to auscultation. Breath sounds equal bilaterally. GASTROINTESTINAL: Abdomen full, nontender, nondistended. Palpable liver border. MUSCULOSKELETAL: Extremities without clubbing, cyanosis, or edema. No obvious deformities. NEUROLOGICAL: Awake and alert. No obvious cranial nerve deficits. Motor grossly within normal limits. Five out of 5 muscle strength in the arms and legs. Normal speech. No asterixis PSYCHIATRIC: Appropriate mood and affect; insight and judgment normal. Results - Labs CBC & Chem 7: 04/03/18 18:15 04/03/18 04:45 Labs: Laboratory Results - last 24 hr 04/02/18 04/02/18 04/03/18 18:03 18:03 00:00 CBC w Diff WBC RBC Hgb 11.8 L Hct 33.3 L MCV MCH MCHC RDW Plt Count MPV WBC Differential Seg Neuts % (Manual) Lymphocytes % (Manual) Monocytes % (Manual) Eosinophils % (Manual) Abs Neuts (Manual) Differential Comment Platelet Estimate Platelet Morphology Target Cells Sodium 131 L Potassium 2.5 L* Chloride 93 L Carbon Dioxide 30.3 Anion Gap 8 BUN 14 Creatinine 1.10 Estimated GFR 67 L Random Glucose 97 Calcium 8.4 L Magnesium 1.7 Total Bilirubin 14.4 H AST 170 H ALT 44 Alkaline Phosphatase 154 H Total Creatine Kinase 284 Total Protein 7.1 Albumin 3.0 L Blood Type A Positive Blood Type Recheck Required Antibody Screen Negative 04/03/18 04/03/18 04/03/18 04:45 04:45 11:00 CBC w Diff Slide review pending WBC 4.6 RBC 3.39 L Hgb 11.6 L 11.8 L Hct 33.8 L 34.8 L MCV 100.0 MCH 34.1 H MCHC 34.1 RDW 16.4 Plt Count 50 L MPV 9.4 WBC Differential Manual diff final Seg Neuts % (Manual) 63 Lymphocytes % (Manual) 32 Monocytes % (Manual) 4 Eosinophils % (Manual) 1 Abs Neuts (Manual) 2.9 Differential Comment . Platelet Estimate Low L Platelet Morphology Normal Target Cells 2+ H Sodium 135 L Potassium 3.0 L Chloride 100 Carbon Dioxide 27.2 Anion Gap 8 BUN 10 Creatinine 0.75 Estimated GFR Greater than 89 Random Glucose 78 Calcium 7.5 L D Magnesium Total Bilirubin AST ALT Alkaline Phosphatase Total Creatine Kinase Total Protein Albumin Blood Type Blood Type Recheck Antibody Screen 04/03/18 18:15 CBC w Diff WBC RBC Hgb 12.7 L Hct 36.6 L MCV MCH MCHC RDW Plt Count MPV WBC Differential Seg Neuts % (Manual) Lymphocytes % (Manual) Monocytes % (Manual) Eosinophils % (Manual) Abs Neuts (Manual) Differential Comment Platelet Estimate Platelet Morphology Target Cells Sodium Potassium Chloride Carbon Dioxide Anion Gap BUN Creatinine Estimated GFR Random Glucose Calcium Magnesium Total Bilirubin AST ALT Alkaline Phosphatase Total Creatine Kinase Total Protein Albumin Blood Type Blood Type Recheck Antibody Screen Caprini VTE Risk Assessment Caprini VTE Risk Assessment: No/Low Risk (score <= 1) Caprini Risk Assessment Model: Point Value = 1 Point Value = 2 Point Value = 3 Point Value = 5 Age 41-60 Minor surgery BMI > 25 kg/m2 Swollen legs Varicose veins or History of unexplained or recurrent spontaneous Oral contraceptives or hormone replacement Sepsis (< 1 month) Serious lung disease, including pneumonia (< 1 month) Abnormal pulmonary function Acute myocardial infarction Congestive heart failure (< 1 month) History of inflammatory bowel disease Medical patient at bed rest Age 61-74 Arthroscopic surgery Major open surgery (> 45 min) Laparoscopic surgery (> 45 min) Malignancy Confined to bed (> 72 hours) Immobilizing plaster cast Central venous access Age >= 75 History of VTE Family history of VTE Factor V Leiden Prothrombin [id number] Lupus anticoagulant Anticardiolipin antibodies Elevated serum homocysteine Heparin-induced thrombocytopenia Other congenital or acquired thrombophilia Stroke (< 1 month) Elective arthroplasty Hip, pelvis, or leg fracture Acute spinal cord injury (< 1 month) Prophylaxis Regimen: Total Risk Factor Score Risk Level Prophylaxis Regimen 0-1 Low Early ambulation 2 Moderate Order ONE of the following: *Sequential Compression Device (SCD) *Heparin 5000 units SQ BID 3-4 Higher Order ONE of the following medications: *Heparin 5000 units SQ TID *Enoxaparin/Lovenox 40 mg SQ daily (WT < 150 kg, CrCl > 30 mL/min) *Enoxaparin/Lovenox 30 mg SQ daily (WT < 150 kg, CrCl > 10-29 mL/min) *Enoxaparin/Lovenox 30 mg SQ BID (WT < 150 kg, CrCl > 30 mL/min) AND/OR *Sequential Compression Device (SCD) 5 or more Highest Order ONE of the following medications: *Heparin 5000 units SQ TID (Preferred with Epidurals) *Enoxaparin/Lovenox 40 mg SQ daily (WT < 150 kg, CrCl > 30 mL/min) *Enoxaparin/Lovenox 30 mg SQ daily (WT < 150 kg, CrCl > 10-29 mL/min) *Enoxaparin/Lovenox 30 mg SQ BID (WT < 150 kg, CrCl > 30 mL/min) AND *Sequential Compression Device (SCD) Assessment and Plan - Plan Cirrhosis Patient is unaware of his jaundice state and has not received adequate follow- up for his condition The darkened stools and dark urine may be part of liver disease according to GI specialist Urinalysis reveals large amounts of bilirubin Contrast CT of abdomen and pelvis ordered Appreciate GI consult Hyponatremia Correcting thus far with normal saline IV fluids Continue normal saline via IV Hypokalemia Still low after receiving p.o. potassium replacement Continue with potassium supplementation Hypocalcemia Reduce since admission due to IV fluid rehydration We will give dose of oral supplementation and recheck in a.m. DVT prophylaxis Patient is a bleeding risks due to elevated INR, chemoprophylaxis held
--- NOTE | 2018-04-03 19:51 | P.CONGI ---
History of Present Illness Consult date: 04/03/18 Consult reason: Jaundice, dark stools Chief complaint: metabolic disturbance History of Present Illness: Patient presenting to the ER because of change in bowel habits and urine color he felt like he had blood in his urine and his stools were loose and dark and this prompted him to present to the emergency room he denies any abdominal pain he denies any nausea or vomiting he denies any prior diarrhea or constipation he denies any fever chills when asked about the jaundice he says he did not really utilize or recognize that he has jaundice and he does not recall being told about any liver issues in the past the patient admits to drinking alcohol he drinks 2 drinks on Monday only and he has been doing that for the past 15 years prior to that he was drinking more heavily Review of Systems Constitutional: Denies anorexia, Denies weakness, Denies weight loss Eyes: Denies blurry vision, Denies dry eyes Ears, Nose, Mouth, and Throat: Denies abnormal hearing, Denies bleeding gums, Denies difficulty swallowing Cardiovascular: Denies chest pain, Denies fainting, Denies lightheadedness Respiratory: Denies cough, Denies shortness of breath Gastrointestinal: Reports change in bowel habits, Denies abdominal pain, Denies black, tarry stools, Denies coffee ground vomit, Denies pain with swallowing, Denies vomiting Genitourinary: Reports blood in urine Musculoskeletal: Denies abnormal walking, Denies back pain, Denies body aches Skin/Breast: Reports yellowing of the skin Neurologic: Denies localized weakness Psychiatric: Denies change in appetite Endocrine: Denies cold intolerance Hematologic/Lymphatic: Denies easy bleeding, Denies easy bruising Allergic/Immunologic: Denies GI upset with certain foods PMFSH - History History Provided By: Patient, Medical Record - Medical History Medical History: Medical History (Last Updated 04/02/18 @ 17:30 by Ira Mas RN) GERD (gastroesophageal reflux disease) History of cirrhosis of liver - Surgical History Surgical History: Surgical History (Last Updated 04/02/18 @ 17:30 by Ira Mas RN) History of right hip replacement - Tobacco History Second Hand Smoke Exposure: No Tobacco Use In Past 30 Days: Yes Smoking Status: Heavy tobacco smoker Tobacco Type: Cigarettes - Alcohol History How Often Do You Have a Drink Containing Alcohol: 2 to 4 times a month - Substance Use History Substance History: No History of Abuse - Travel History Recent Travel in the [place] Within the Last 8 Weeks: No Recent Travel Out of the Country Within the Last 8 Weeks: No - Immunization History Tetanus Immunization: Unsure Hx Influenza Vaccine This Season: Yes Medications and Allergies Active Medications: Active Medications Ondansetron HCl (Zofran Inj) 4 mg IV.PUSH Q6H PRN PRN Reason: NAUSEA Pantoprazole Sodium (Protonix Inj) 40 mg IV.PUSH DAILY [facility] Last Admin: 04/03/18 08:48 Dose: 40 mg Sodium Chloride (Ns Flush) 2 ml IV.FLUSH BID [facility] Last Admin: 04/03/18 08:48 Dose: Not Given Sodium Chloride (Ns Flush) 2 ml IV.FLUSH PRN PRN PRN Reason: FLUSH AFTER USING IV ACCESS Allergies Allergy/AdvReac Type Severity Reaction Status Date / Time No Known Allergies Allergy Verified 04/02/18 17:35 Home Medications Medication Instructions Recorded Confirmed Type esomeprazole magnesium [Nexium] 40 mg PO DAILY 04/02/18 04/02/18 History Exam Vital signs: Vital Signs 04/02/18 20:06 04/02/18 22:12 04/02/18 23:15 Temperature Pulse Rate 69 79 69 Respiratory Rate 18 18 Blood Pressure 181/83 H 156/79 H Pulse Oximetry 98 98 96 04/03/18 00:00 04/03/18 04:00 04/03/18 07:00 Temperature 99.4 F 98.4 F Pulse Rate 70 73 Respiratory Rate 18 18 Blood Pressure 155/75 H 150/70 H Pulse Oximetry 95 98 98 04/03/18 07:11 04/03/18 09:04 04/03/18 12:14 Temperature 98.1 F 98.2 F Pulse Rate 61 61 60 Respiratory Rate 16 16 Blood Pressure 168/72 H 165/74 H Pulse Oximetry 98 98 04/03/18 16:00 Temperature 99.1 F Pulse Rate 77 Respiratory Rate 16 Blood Pressure 132/65 Pulse Oximetry 98 Intake & Output 04/03/18 04/03/18 04/04/18 06:59 18:59 06:59 Intake Total 1400 / 1400 1999 / 1999 Output Total 300 / 300 Balance 1100 / 1100 1999 / 1999 Weight 76.7 kg Intake: IV 1200 / 1200 1200 / 1200 NS Inj 1,000 ML @ 100 mls/hr IV 1000 / 1000 1000 / 1000 .CONT .Q10H [place] Rx#:[id number] KCl 20 mEq Premix Inj 20 meq In 100 / 100 200 / 200 100 ml @ 50 mls/hr IV.SIG Q2H [place] Rx#:[id number] Rocephin Inj 1,000 MG In NS Inj 100 / 100 100 ML @ 200 mls/hr IV.SIG ONCE ONE Rx#:[id number] Oral 200 / 200 800 / 800 Output: Urine 300 / 300 Other: # Voids 1 3 - Constitutional no acute distress - Routine HEENT Exam Head: Present: normocephalic, atraumatic Eye: Present: EOMI, PERRL, conjunctival icterus ENT: Present: mucous membranes moist - Routine Neck Exam Present: supple - Routine Chest/Breast/Axilla Exam Chest wall: Absent: tenderness - Routine Respiratory Exam Present: CTA bilaterally. Absent: accessory muscle use - Routine Cardiovascular Exam Present: RRR - Routine Abdominal Exam Present: soft, normoactive bowel sounds, organomegaly - Routine Extremities Exam Absent: cyanosis, clubbing, edema - Routine Skin Exam Present: jaundice - Routine Neurological Exam Present: alert, oriented X3 Results - Labs CBC & Chem 7: 04/03/18 18:15 04/03/18 04:45 Labs: Laboratory Results - last 24 hr 04/02/18 04/02/18 04/03/18 18:03 18:03 00:00 CBC w Diff WBC RBC Hgb 11.8 L Hct 33.3 L MCV MCH MCHC RDW Plt Count MPV WBC Differential Seg Neuts % (Manual) Lymphocytes % (Manual) Monocytes % (Manual) Eosinophils % (Manual) Abs Neuts (Manual) Differential Comment Platelet Estimate Platelet Morphology Target Cells Sodium 131 L Potassium 2.5 L* Chloride 93 L Carbon Dioxide 30.3 Anion Gap 8 BUN 14 Creatinine 1.10 Estimated GFR 67 L Random Glucose 97 Calcium 8.4 L Magnesium 1.7 Total Bilirubin 14.4 H AST 170 H ALT 44 Alkaline Phosphatase 154 H Total Creatine Kinase 284 Total Protein 7.1 Albumin 3.0 L Blood Type A Positive Blood Type Recheck Required Antibody Screen Negative 04/03/18 04/03/18 04/03/18 04:45 04:45 11:00 CBC w Diff Slide review pending WBC 4.6 RBC 3.39 L Hgb 11.6 L 11.8 L Hct 33.8 L 34.8 L MCV 100.0 MCH 34.1 H MCHC 34.1 RDW 16.4 Plt Count 50 L MPV 9.4 WBC Differential Manual diff final Seg Neuts % (Manual) 63 Lymphocytes % (Manual) 32 Monocytes % (Manual) 4 Eosinophils % (Manual) 1 Abs Neuts (Manual) 2.9 Differential Comment . Platelet Estimate Low L Platelet Morphology Normal Target Cells 2+ H Sodium 135 L Potassium 3.0 L Chloride 100 Carbon Dioxide 27.2 Anion Gap 8 BUN 10 Creatinine 0.75 Estimated GFR Greater than 89 Random Glucose 78 Calcium 7.5 L D Magnesium Total Bilirubin AST ALT Alkaline Phosphatase Total Creatine Kinase Total Protein Albumin Blood Type Blood Type Recheck Antibody Screen 04/03/18 18:15 CBC w Diff WBC RBC Hgb 12.7 L Hct 36.6 L MCV MCH MCHC RDW Plt Count MPV WBC Differential Seg Neuts % (Manual) Lymphocytes % (Manual) Monocytes % (Manual) Eosinophils % (Manual) Abs Neuts (Manual) Differential Comment Platelet Estimate Platelet Morphology Target Cells Sodium Potassium Chloride Carbon Dioxide Anion Gap BUN Creatinine Estimated GFR Random Glucose Calcium Magnesium Total Bilirubin AST ALT Alkaline Phosphatase Total Creatine Kinase Total Protein Albumin Blood Type Blood Type Recheck Antibody Screen Assessment and Plan - Plan Patient presenting with new onset of jaundice, labs very suggestive of acute alcoholic hepatitis, organomegaly, We will need to obtain abdominal imaging We will monitor labs closely No evidence of any active GI bleed at this point Patient will require endoscopy at some point Further recommendations shall depend on his hospital course
[2018-04-03 22:14] VITALS: RESP 18
[2018-04-03 22:19] LABS: % Iron Saturation 23.7 % (20-50)
[2018-04-03 23:15] LABS: Hepatitis A IgM Antibody Nonreactive (Nonreactive)
[2018-04-03 23:20] LABS: Hepatitits B Surface Antigen Nonreactive (Nonreactive)
[2018-04-04] MEDS ORDERED: Diatrizoate Meglum/Diatrizoate Sod Liq 9 ML UDC PO SCH (01:15)
--- NOTE | 2018-04-04 03:56 | CT ---
EXAM DATE: 04/04/2018 3:48 AM EDT AGE/SEX: 62 years / Male INDICATIONS: History of cirrhosis. Gross hematuria. Dark red stool. CLINICAL DATA: This is the patient's initial encounter. Patient reports that signs and symptoms have been present for 4 - 6 days and indicates a pain score of 5/10. MEDICAL/SURGICAL HISTORY: Cirrhosis. Gastroesophageal reflux disease. . Right hip. ORAL CONTRAST: Prescribed oral contrast ingested. RADIATION DOSE: 13.38 CTDI (mGy) COMPARISON: No prior exams available for comparison. TECHNIQUE: Multiple contiguous axial images were obtained through the abdomen and pelvis following b olus infusion of 75 ml Omnipaque 350 (iohexol) nonionic water-soluble contrast as a single exam dos e. Prescribed oral contrast ingested. Using automated exposure control and adjustment of the mA and/ or kV according to patient size, radiation dose was kept as low as reasonably achievable to obtain op timal diagnostic quality images. DICOM format image data is available electronically for review and comparison. FINDINGS: Lower Lungs: The visualized lower lungs are clear. Liver: Liver shows diminished attenuation with marginal nodularity characteristic of some degree of c irrhosis with fatty infiltration. Is also portal hypertension with recanalization of the periumbilica l vein. Multiple calcified gallstones in the gallbladder lumen Spleen: Homogeneous density without enlargement. Pancreas: Unremarkable without mass or calcification. Kidneys: Benign-appearing 4 cm cyst in the medial upper pole of the left kidney. Right kidney is rad iographically normal Adrenal Glands: Unremarkable. Aorta: The aorta and proximal iliac vessels are grossly unremarkable without aneurysmal dilation. Bowel/Mesentery: Diverticular disease is seen throughout the colon with no obvious focal diverticuli tis. However, the majority of the ascending colon appears abnormally thickened suggesting a nonspecif ic colitis. Abdominal Wall: Intact. Retroperitoneum: No evidence of adenopathy in the retrocrural, para-aortic, or deep pelvic regions. Bladder: Contours are smooth. Reproductive Organs: No abnormal masses or calcifications seen. Inguinal: The inguinal region is unremarkable without evidence of adenopathy. Bony Structures: Right total hip arthroplasty. Osseous structures are otherwise intact Post Contrast: No abnormal areas of enhancement seen. CONCLUSION: 1. CT findings characteristic of cirrhosis with diffuse hepatic fatty infiltration. Portal hypertens ion with recanalization of the periumbilical. 2. Cholelithiasis. 3. Diverticular disease throughout the colon with no obvious focal diverticulitis. There is rather d iffuse thickening of the a ascending colon suggesting a nonspecific regional colitis. Electronically signed by: Aime White MD 04/04/2018 3:55 AM EDT
[2018-04-04 06:10] LABS: Hematocrit 32.6 % (39.0-51.0); Hemoglobin 11.2 gm/dL (13.0-17.0); Mean Corpuscular HGB Conc 34.4 % (32.0-36.0); Mean Corpuscular Hemoglobin 34.5 pg (27.0-34.0); Mean Corpuscular Volume 100.1 fL (80.0-100.0); Mean Platelet Volume 8.9 fL (7.0-11.0); Platelet Count 52 th/mm3 (150-450); Red Blood Count 3.26 mil/mm3 (4.50-5.90); Red Cell Distribution Width 16.8 % (11.6-17.2); White Blood Count 4.8 th/mm3 (4.0-11.0)
[2018-04-04 06:23] LABS: Chloride 100 meq/L (98-107); Potassium 3.4 meq/L (3.5-5.1); Sodium 136 meq/L (136-145)
[2018-04-04 06:25] LABS: INR 1.4 Ratio; Prothrombin Time 14.4 sec (9.8-11.6)
[2018-04-04 06:28] LABS: Calcium 7.9 mg/dL (8.5-10.1); Eosinophils 1 % (0-4); Lymphocytes 30 % (9-44); Monocytes 3 % (0-8); Platelet Morphology Normal (Normal); Target Cells 1+
[2018-04-04 06:34] LABS: Alanine Aminotransferase 33 U/L (12-78); Albumin 2.4 g/dL (3.4-5.0); Anion Gap 9 meq/L (5-15); Aspartate Aminotransferase 115 U/L (15-37); Blood Urea Nitrogen 8 mg/dL (7-18); Carbon Dioxide 26.8 meq/L (21.0-32.0); Glomerular Filtration Rate Greater Than 89 mL/min (>89); Glucose,Random 95 mg/dL (74-106); Total Protein 5.9 g/dL (6.4-8.2)
[2018-04-04 06:35] LABS: Alkaline Phosphatase 132 U/L (45-117)
[2018-04-04 08:07] VITALS: O2SAT 98
[2018-04-04] MEDS: Pantoprazole Inj 40 MG Vial IV.PUSH SCH (09:09)
[2018-04-04 11:48] VITALS: BP 144/68; PULSE 67; TEMP 96.7
--- NOTE | 2018-04-04 15:21 | P.DS ---
Date of admission: 04/02/18 19:22 Primary care physician: No Primary Care Physician Brief History from admission: This is a 62-year-old male with a history of cirrhosis and gastroesophageal reflux disease. For the last 2 days he has noticed a change in his stool patterns with onset of diarrhea associated with dark brown stools. He felt that might be an indication of bleeding since in the past he was worked up for GI bleed. He decided to come to the ER for further evaluation. He denies any abdominal pain. He points to his urine drug which has dark brownish colored urine within it. He feels that might be blood in his urine. He admits he has drunk heavily in the past but currently he states he only drinks 2 drinks every Monday. He is not aware of his jaundiced state. DS: Summary Hospital Course: 62-year-old male admitted for dark stools, seem to be a GI bleed. Urinalysis revealed markedly elevated bilirubin levels. On GI evaluation he was determined to have acute exacerbation of chronic liver disease, cirrhosis. CT of the abdomen confirmed cirrhosis and showed incidental finding of gallstones in the lumen of the gallbladder. The laboratory pattern is consistent with alcoholic hepatitis. Patient denies a history of hepatitis, states that he had a negative hepatitis panel drawn in 2006. Those records are not able to be obtained, but records from 2010 were obtained which showed no evidence of cirrhosis at that time. Today he reports that his urine is returned to normal color in his stools are no longer loose and also appeared normal in color. He would like to go home and I believe he is stable for discharge. He is recommended to follow-up with gastroenterology as an outpatient for management of his cirrhosis. - Time Spent with Patient Total time spent providing and/or coordinating discharge services: - Quality: VTE Deep Vein Thrombosis/Pulmonary Embolism Present on Admission: No Exam Vital signs: Vital Signs 04/03/18 16:00 04/03/18 20:00 04/04/18 00:00 Temperature 99.1 F 99.7 F H 99.6 F Pulse Rate 77 70 75 Respiratory Rate 16 18 18 Blood Pressure 132/65 125/59 L 120/57 L Pulse Oximetry 98 99 99 04/04/18 04:00 04/04/18 08:00 04/04/18 11:47 Temperature 96.5 F L 98.7 F 96.7 F L Pulse Rate 68 65 67 Respiratory Rate 18 18 18 Blood Pressure 134/74 145/77 H 144/68 H Pulse Oximetry 100 98 98 Intake & Output 04/03/18 04/04/18 04/04/18 18:59 06:59 18:59 Intake Total 1999 100 / 100 Output Total 300 / 300 Balance 1999 -200 / -200 Weight 76.7 kg Intake: IV 1200 / 1200 100 / 100 NS Inj 1,000 ML @ 100 mls/hr IV 1000 / 1000 .CONT .Q10H [facility] Rx#:[id number] KCl 20 mEq Premix Inj 20 meq In 200 / 200 100 ml @ 50 mls/hr IV.SIG Q2H [facility] Rx#:[id number] Oral 800 / 800 Output: Urine 300 / 300 Other: # Voids 3 Date of Last Bowel Movement 04/03/18 Results Procedures completed during hospitalization: none Labs on day of discharge: Labs from last 24 hours 04/04/18 04/04/18 04/04/18 11:55 05:55 05:55 CBC w Diff Slide review pending WBC 4.8 RBC 3.26 L Hgb 11.2 L Hct 32.6 L MCV 100.1 H MCH 34.5 H MCHC 34.4 RDW 16.8 Plt Count 52 L MPV 8.9 WBC Differential Manual diff final Seg Neuts % (Manual) 66 Lymphocytes % (Manual) 30 Monocytes % (Manual) 3 Eosinophils % (Manual) 1 Abs Neuts (Manual) 3.2 Differential Comment . Platelet Estimate Low L Platelet Morphology Normal Target Cells 1+ H PT 14.4 H INR 1.4 Sodium Potassium Chloride Carbon Dioxide Anion Gap BUN Creatinine Estimated GFR Random Glucose Calcium Ionized Calcium Iron TIBC % Saturation Total Bilirubin AST ALT Alkaline Phosphatase Total Protein Albumin Ceruloplasmin IgA Rheumatoid Factor VALENTINE Screen VALENTINE Pattern SS-A Antibody SS-B Antibody Sm ([place]) Antibody SM/FERRY CAPTAIN Antibody Scl-70 Antibody Anti-ds DNA (Crith[place]) Mitochondria M2 IgG Ab Anti-Smooth Muscle Ab Tiss Transglutamin IgA Celiac Disease Interp Hepatitis A IgM Ab Pending Hep Bs Antigen Pending Hep B Core IgM Ab Pending Hep C IgG Ab Pending 04/04/18 04/04/18 04/03/18 05:55 05:55 20:35 CBC w Diff WBC RBC Hgb Hct MCV MCH MCHC RDW Plt Count MPV WBC Differential Seg Neuts % (Manual) Lymphocytes % (Manual) Monocytes % (Manual) Eosinophils % (Manual) Abs Neuts (Manual) Differential Comment Platelet Estimate Platelet Morphology Target Cells PT INR Sodium 136 Potassium 3.4 L Chloride 100 Carbon Dioxide 26.8 Anion Gap 9 BUN 8 Creatinine 0.77 Estimated GFR Greater than 89 Random Glucose 95 Calcium 7.9 L Ionized Calcium Pending Iron TIBC % Saturation Total Bilirubin 11.5 H AST 115 H ALT 33 Alkaline Phosphatase 132 H Total Protein 5.9 L D Albumin 2.4 L D Ceruloplasmin Pending IgA Pending Rheumatoid Factor Pending VALENTINE Screen Pending VALENTINE Pattern Pending SS-A Antibody Pending SS-B Antibody Pending Sm ([place]) Antibody Pending SM/FERRY CAPTAIN Antibody Pending Scl-70 Antibody Pending Anti-ds DNA ([place]ith[place]) Pending Mitochondria M2 IgG Ab Pending Anti-Smooth Muscle Ab Pending Tiss Transglutamin IgA Pending Celiac Disease Interp Pending Hepatitis A IgM Ab Hep Bs Antigen Hep B Core IgM Ab Hep C IgG Ab 04/03/18 04/03/18 04/03/18 20:35 20:35 18:15 CBC w Diff WBC RBC Hgb 12.7 L Hct 36.6 L MCV MCH MCHC RDW Plt Count MPV WBC Differential Seg Neuts % (Manual) Lymphocytes % (Manual) Monocytes % (Manual) Eosinophils % (Manual) Abs Neuts (Manual) Differential Comment Platelet Estimate Platelet Morphology Target Cells PT INR Sodium Potassium Chloride Carbon Dioxide Anion Gap BUN Creatinine Estimated GFR Random Glucose Calcium Ionized Calcium Iron 50 L TIBC 211 L % Saturation 23.7 Total Bilirubin AST ALT Alkaline Phosphatase Total Protein Albumin Ceruloplasmin IgA Rheumatoid Factor VALENTINE Screen VALENTINE Pattern SS-A Antibody SS-B Antibody Sm ([place]) Antibody SM/FERRY CAPTAIN Antibody Scl-70 Antibody Anti-ds DNA ([place]) Mitochondria M2 IgG Ab Anti-Smooth Muscle Ab Tiss Transglutamin IgA Celiac Disease Interp Hepatitis A IgM Ab Nonreactive Hep Bs Antigen Nonreactive Hep B Core IgM Ab Nonreactive Hep C IgG Ab Nonreactive - Impressions ITS Impressions Abdomen/Pelvis CT 04/04/18 03:15 CONCLUSION: 1. CT findings characteristic of cirrhosis with diffuse hepatic fatty infiltration. Portal hypertension with recanalization of the periumbilical. 2. Cholelithiasis. 3. Diverticular disease throughout the colon with no obvious focal diverticulitis. There is rather diffuse thickening of the a ascending colon suggesting a nonspecific regional colitis. Discharge Plan - Discharge Disposition Patient Disposition: 01 Discharge Home - Discharge Condition Condition: Good - Discharge Order Discharge Orders: Discharge Order (Routine); Ordered 04/04/18 Ordered By: Ramsey Fonseca - Physicians Team Primary Care Provider: Primary Care Sandra,Abby Attending Provider: Ramsey Fonseca Other Providers: Alexei Piña MD
[2018-04-05 00:21] LABS: Hepatitis A IgM Antibody Nonreactive (Nonreactive); Hepatitits B Surface Antigen Nonreactive (Nonreactive)
[2018-04-05 12:56] LABS: Smooth Muscle Total Auto Abs Negative (Negative)
[2018-04-05 19:52] LABS: Ceruloplasmin 23 mg/dL (18-36)
[2018-04-06 11:52] LABS: IgA Serum 480 mg/dL (81-463); Tissue Transglutaminase Ab IgG ND U/mL (())
[2018-04-07 03:51] LABS: DS DNA Ab (Crithidia) NEGATIVE (NEGATIVE)
== END 2018-04-04 15:43 | disposition home or self-care (01) ==
LOC: PHED 16:52 → PH3 16:52 → PHEDA 16:52 → PH3 22:17
PROVIDERS: ADMIT Family Medicine; ATTEND Family Medicine

== ENCOUNTER 2018-05-11 13:07 | Inpatient (IN) ==
--- NOTE | 2018-05-11 14:39 | ED ---
HPI General Chief Complaint: Abdominal Pain Stated Complaint: GI complaint Time Seen by Provider: 05/11/18 14:38 History of Present Illness HPI narrative: Cipro since last week last dose was this morning.Patient presents to the emergency department with abdominal pain. Patient has a history of liver cirrhosis secondary to EtOH and reports seeing Dr. Meier for abdominal pain today and was advised to come to the emergency department. Abdominal pain present for 5-6 weeks, right side, constant, no alleviating or aggravating factors, 10 out of 10. Bilateral lower extremity swelling and fall 2 days ago. He denies fever, nausea, vomiting, chest pain, or bleeding. He does report shortness of breath. 05/09 CT scan abd/pelvis: CONCLUSION:1. No acute traumatic findings are demonstrated.2. Worsening cirrhotic changes of the liver. Moderate ascites has developed.3. Small right and moderate left pleural effusions with atelectasis have developed of the bases.4. Small hiatal hernia with varices.5. Cholelithiasis again noted.6. Diverticulosis without diverticulitis. Related Data Home Medications Medication Instructions Recorded Confirmed ciprofloxacin (mixture) 500 mg PO 5XW 05/09/18 05/11/18 esomeprazole magnesium [Nexium] 40 mg PO DAILY 05/09/18 05/11/18 furosemide [Lasix] 40 mg PO DAILY 05/09/18 05/11/18 lactulose 15 g PO TID 05/09/18 05/11/18 lidocaine 1 patch TOPICAL DAILY 05/09/18 05/11/18 tamsulosin [Flomax] 0.4 mg PO DAILY 05/09/18 05/11/18 zolpidem [Ambien] 10 mg PO HS 05/09/18 05/11/18 spironolactone 100 mg PO DAILY 05/11/18 05/11/18 Allergies Allergy/AdvReac Type Severity Reaction Status Date / Time No Known Allergies Allergy Verified 05/11/18 13:08 Review of Systems ROS: all other systems reviewed are negative [facility] Social History Social History Substance History: Past History Second Hand Smoke Exposure: Yes Smoking Status: Current every day smoker Tobacco Type: Cigarettes How Often Do You Have a Drink Containing Alcohol: Never Recent Travel in [place] within the Last 8 Weeks: No Recent Out of Country Travel within the Last 8 Weeks: No Exam Narrative Exam Narrative: GENERAL: No acute distress. SKIN: Focused skin assessment warm/dry. Jaundice. HEAD: Atraumatic. Normocephalic. EYES: Pupils equal and round. scleral icterus. No injection or drainage. ENT: No nasal bleeding or discharge. Mucous membranes pink and moist. NECK: Trachea midline. No JVD. CARDIOVASCULAR: Regular rate and rhythm. No murmur appreciated. RESPIRATORY: No accessory muscle use. Clear to auscultation. Breath sounds equal bilaterally. GASTROINTESTINAL: Abdomen soft, right side tender, distended secondary to ascites. Hepatomegaly. rectal: brown stool, hemoccult negative MUSCULOSKELETAL: No obvious deformities. No clubbing. No cyanosis. Positive bilateral extremity pitting edema. NEUROLOGICAL: Awake and alert. No obvious cranial nerve deficits. Motor grossly within normal limits. Normal speech. PSYCHIATRIC: Appropriate mood and affect; insight and judgment normal. Course Initial Documented Vital Signs Temperature 97.4 F L 05/11/18 13:08 Pulse Rate 101 H 05/11/18 13:08 Respiratory Rate 20 05/11/18 13:08 Blood Pressure 101/49 L 05/11/18 13:08 Pulse Oximetry 97 05/11/18 13:08 Last Documented Vital Signs Temperature 97.4 F L 05/11/18 13:08 Pulse Rate 106 H 05/11/18 17:30 Respiratory Rate 20 05/11/18 17:30 Blood Pressure 96/51 L 05/11/18 17:30 Pulse Oximetry 99 05/11/18 17:30 Critical Care Time Critical Care Time: Yes Total Critical Care Time: 30 Attestation: Aggregate critical care time was 30 minutes. Time to perform other separately billable procedures was not included in the critical care time. My time did not include minutes spent treating any other patients simultaneously or on activities that did not directly contribute to the patient's treatment. The services I provided to this patient were to treat and/or prevent clinically significant deterioration that could result in: , increased morbidity, respiratory failure, shock I provided critical care services requiring my management, as noted below: Chart data review, documentation time, medication orders and management, vital sign assessments/reviewing monitor data, ordering and reviewing lab tests, ordering and interpreting/reviewing x-rays and diagnostic studies, care of the patient and discussion of the patient with the admitting physicians. Medical Decision Making MDM Narrative Medical decision making narrative: Patient presents to the emergency department abdominal pain and swelling. Placed on a conveyor monitor, continuous pulse ox, IV access obtained. Head CT, chest x-ray, labs ordered. As well as 2mg IV morphine. Head CT: No acute findings CXR:FINDINGS: There is hazy parenchymal infiltrate in the left mid to lower lung zone. There is cardiomegaly. Right lung is clear. Osseous structures are intact.CONCLUSION: Left lung infiltrate. Labs: bd cx pending. Elevated wbc count, decrease hgb/HCT, elevated coags; decrease sodium; elevated T bili, sodium, creatinine, BUN, AST, anion gap, alk phos, lipase, lactic acid 1645: Dr Meier called. Requests: Admit patient to ICU, Call midlevel, Philly Perez to advise patient being admitted, octreotide gtt 50mcg bolus then 50mcg /hr, cefotaxime 2grams-per pharmacy we don't have, so he wants Rocephin 2 grams IV, lasix 80mg IV QD, spironolactone 100mg po QD, rifaxim 550mg po BID, D51/2 NS at 100/hr, NPO after midnight for procedure tomorrow, needs therapeutic and diagnostic paracentesis which I have ordered. 1650: Philly in ER to evaluate patient. ICU called for admission. 170: Dr Gross, ICU attending at bedside. Added on 500mg po zithromax for CAP. Medical Screen Exam Complete: Yes Emergency Medical Condition: Yes Differential Diagnosis Differential Diagnosis: SBP, liver failure, pulmonary edema, CHF, Lab Data Result diagrams: 05/11/18 14:50 05/11/18 14:50 Lab Results 05/11/18 05/11/18 05/11/18 Range/Units 14:50 14:50 14:50 WBC 18.5 H (4.0-11.0) th/mm3 RBC 2.08 L (4.50-5.90) mil/mm3 Hgb 7.5 L (13.0-17.0) gm/dL Hct 22.1 L (39.0-51.0) % MCV 106.2 H (80.0-100.0) fL MCH 35.9 H (27.0-34.0) pg MCHC 33.8 (32.0-36.0) % RDW 15.1 (11.6-17.2) % Plt Count 169 (150-450) th/mm3 MPV 9.1 (7.0-11.0) fL Prelim Diff (Auto) Slide review pending Neut % (Auto) 80.9 H (16.0-70.0) % Lymph % (Auto) 8.3 L (9.0-44.0) % [place] % (Auto) 10.4 H (0.0-8.0) % Eos % (Auto) 0.2 (0.0-4.0) % Baso % (Auto) 0.2 (0.0-2.0) % Neut # (Auto) 15.0 H (1.8-7.7) th/mm3 Lymph # (Auto) 1.5 (1.0-4.8) th/mm3 [place] # (Auto) 1.9 H (0.0-0.9) th/mm3 Eos # (Auto) 0.0 (0.0-0.4) th/mm3 Baso # (Auto) 0.0 (0.0-0.2) th/mm3 WBC Differential . Diff Scan Auto diff confirmed Differential Comment . Platelet Estimate Normal (Normal) Platelet Morphology Normal (Normal) PT 19.8 H (9.8-11.6) sec INR 2.0 Ratio APTT 31.0 H (24.3-30.1) sec Sodium 127 L (136-145) meq/L Potassium 4.7 (3.5-5.1) meq/L Chloride 89 L (98-107) meq/L Carbon Dioxide 14.8 L (21.0-32.0) meq/L Anion Gap 23 H (5-15) meq/L BUN 44 H (7-18) mg/dL Creatinine 2.13 H (0.60-1.30) mg/dL Estimated GFR 31 L (>89) mL/min Random Glucose 82 (74-106) mg/dL Lactic Acid (0.4-2.0) mmol/L Calcium 7.8 L (8.5-10.1) mg/dL Magnesium 2.3 (1.5-2.5) mg/dL Total Bilirubin 4.5 H (0.2-1.0) mg/dL AST 108 H (15-37) U/L ALT 45 (12-78) U/L Alkaline Phosphatase 137 H (45-117) U/L Ammonia (11-32) mcmol/L Total Protein 5.2 L D (6.4-8.2) g/dL Albumin 1.7 L (3.4-5.0) g/dL Urine Color (Yellw/Straw) Urine Clarity (Clear) Urine pH (5.0-8.5) Ur Specific [place] (1.002-1.035) Urine Protein (Neg-Trace) mg/dL Urine Glucose (UA) (Negative) mg/dL Urine Ketones (Negative) mg/dL Urine Occult Blood (Negative) Urine Nitrate (Negative) Urine Bilirubin (Negative) Urine Urobilinogen (Less than 2) mg/dL Ur Leukocyte Esterase (Negative) Urine RBC (0-3) /hpf Urine WBC (0-5) /hpf Hyaline Casts (0-3) /lpf Micro UA Comment Ur Microscopic Review Urine Culture Comments 05/11/18 05/11/18 05/11/18 Range/Units 14:50 15:50 15:55 WBC (4.0-11.0) th/mm3 RBC (4.50-5.90) mil/mm3 Hgb (13.0-17.0) gm/dL Hct (39.0-51.0) % MCV (80.0-100.0) fL MCH (27.0-34.0) pg MCHC (32.0-36.0) % RDW (11.6-17.2) % Plt Count (150-450) th/mm3 MPV (7.0-11.0) fL Prelim Diff (Auto) Neut % (Auto) (16.0-70.0) % Lymph % (Auto) (9.0-44.0) % [place] % (Auto) (0.0-8.0) % Eos % (Auto) (0.0-4.0) % Baso % (Auto) (0.0-2.0) % Neut # (Auto) (1.8-7.7) th/mm3 Lymph # (Auto) (1.0-4.8) th/mm3 [place] # (Auto) (0.0-0.9) th/mm3 Eos # (Auto) (0.0-0.4) th/mm3 Baso # (Auto) (0.0-0.2) th/mm3 WBC Differential Diff Scan Differential Comment Platelet Estimate (Normal) Platelet Morphology (Normal) PT (9.8-11.6) sec INR Ratio APTT (24.3-30.1) sec Sodium (136-145) meq/L Potassium (3.5-5.1) meq/L Chloride (98-107) meq/L Carbon Dioxide (21.0-32.0) meq/L Anion Gap (5-15) meq/L BUN (7-18) mg/dL Creatinine (0.60-1.30) mg/dL Estimated GFR (>89) mL/min Random Glucose (74-106) mg/dL Lactic Acid 12.7 H* (0.4-2.0) mmol/L Calcium (8.5-10.1) mg/dL Magnesium (1.5-2.5) mg/dL Total Bilirubin (0.2-1.0) mg/dL AST (15-37) U/L ALT (12-78) U/L Alkaline Phosphatase (45-117) U/L Ammonia 14 (11-32) mcmol/L Total Protein (6.4-8.2) g/dL Albumin (3.4-5.0) g/dL Urine Color [place] (Yellw/Straw) Urine Clarity Cloudy H (Clear) Urine pH 5.0 (5.0-8.5) Ur Specific [place] 1.017 (1.002-1.035) Urine Protein Negative (Neg-Trace) mg/dL Urine Glucose (UA) Negative (Negative) mg/dL Urine Ketones Negative (Negative) mg/dL Urine Occult Blood Small H (Negative) Urine Nitrate Negative (Negative) Urine Bilirubin Negative (Negative) Urine Urobilinogen 4 or greater (Less than 2) mg/dL Ur Leukocyte Esterase Negative (Negative) Urine RBC 1 (0-3) /hpf Urine WBC 14 H (0-5) /hpf Hyaline Casts 38 (0-3) /lpf Micro UA Comment Culture indicated Ur Microscopic Review Not Reportable Urine Culture Comments Culture indicated Imaging Data Radiologist's impression: Head CT 05/11/18 14:39 CONCLUSION: 1. No acute findings. . Chest X-Ray 05/11/18 14:40 CONCLUSION: Left lung infiltrate. Discharge Plan Discharge Disposition Patient Disposition: 30 Still Patient Discharge Condition Condition: Critical Discharge Details Diagnosis: Elevated lactic acid level, SBP (spontaneous bacterial peritonitis), Pneumonia Physicians Team ED Provider: Yanna Bolanos Primary Care Provider: Steven Freeman Attending Provider: Mike Gross Status ED Status: Admitted Patient
[2018-05-11] MEDS ORDERED: Morphine Sulfate Inj 2 MG/ML Vial IV.PUSH ONE (14:45)
[2018-05-11 15:00] LABS: Baso % (Auto) 0.2 % (0.0-2.0); Eos % (Auto) 0.2 % (0.0-4.0); Hematocrit 22.1 % (39.0-51.0); Hemoglobin 7.5 gm/dL (13.0-17.0); Lymph # (Auto) 1.5 th/mm3 (1.0-4.8); Lymph % (Auto) 8.3 % (9.0-44.0); Mean Corpuscular HGB Conc 33.8 % (32.0-36.0); Mean Corpuscular Hemoglobin 35.9 pg (27.0-34.0); Mean Corpuscular Volume 106.2 fL (80.0-100.0); Mean Platelet Volume 9.1 fL (7.0-11.0); Mono # (Auto) 1.9 th/mm3 (0.0-0.9); Mono % (Auto) 10.4 % (0.0-8.0); Neut % (Auto) 80.9 % (16.0-70.0); Platelet Count 169 th/mm3 (150-450); Red Blood Count 2.08 mil/mm3 (4.50-5.90); Red Cell Distribution Width 15.1 % (11.6-17.2); White Blood Count 18.5 th/mm3 (4.0-11.0)
--- NOTE | 2018-05-11 15:16 | CT ---
EXAM DATE: 05/11/2018 3:09 PM EDT AGE/SEX: 62 years / Male INDICATIONS: Trauma, head injury. CLINICAL DATA: This is the patient's initial encounter. Patient reports that signs and symptoms have been present for 1 day and indicates a pain score of 4/10. MEDICAL/SURGICAL HISTORY: Gastroesophageal reflux disease. Cirrhosis. Reflux, GI bleed. . Right h ip surgery. RADIATION DOSE: 56.35 CTDI (mGy) COMPARISON: [facility], CT BRAIN W/O CONTRAST, 02/06/2016. . TECHNIQUE: CT of the head without contrast. Using automated exposure control and adjustment of the mA and/or kV according to patient size, radiation dose was kept as low as reasonably achievable to ob tain optimal diagnostic quality images. DICOM format image data is available electronically for revi ew and comparison. 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 No signs of acute infarct, hemorrhage or mass. Mild periventricular white matter disease. No fracture s. CONCLUSION: 1. No acute findings. . Electronically signed by: Rickie Marie MD 05/11/2018 3:14 PM EDT
[2018-05-11 15:29] LABS: Prothrombin Time 19.8 sec (9.8-11.6)
[2018-05-11 15:30] LABS: Platelet Estimate Normal (Normal); Platelet Morphology Normal (Normal)
[2018-05-11 15:31] LABS: Alanine Aminotransferase 45 U/L (12-78); Albumin 1.7 g/dL (3.4-5.0); Anion Gap 23 meq/L (5-15); Aspartate Aminotransferase 108 U/L (15-37); Blood Urea Nitrogen 44 mg/dL (7-18); Calcium 7.8 mg/dL (8.5-10.1); Carbon Dioxide 14.8 meq/L (21.0-32.0); Chloride 89 meq/L (98-107); Glomerular Filtration Rate 31 mL/min (>89); Glucose,Random 82 mg/dL (74-106); Magnesium 2.3 mg/dL (1.5-2.5); Potassium 4.7 meq/L (3.5-5.1); Sodium 127 meq/L (136-145)
[2018-05-11 15:33] LABS: Alkaline Phosphatase 137 U/L (45-117); Total Protein 5.2 g/dL (6.4-8.2)
[2018-05-11] MEDS ORDERED: Sodium Chlor 0.9% Inj 500 ML IV.SIG ONE (15:34)
--- NOTE | 2018-05-11 15:56 | XR ---
EXAM DATE: 05/11/2018 3:36 PM EDT AGE/SEX: 62 years / Male INDICATIONS: Dyspnea. CLINICAL DATA: This is the patient's initial encounter. Patient reports that signs and symptoms have been present for 3 days and indicates a pain score of 4/10. MEDICAL/SURGICAL HISTORY: . Gastroesophageal reflux disease. Cirrhosis. Reflux, GI bleed. . R ight hip surgery COMPARISON: [facility], RIBS LEFT MIN 3V W EXP CHEST, 04/24/2018. . FINDINGS: There is hazy parenchymal infiltrate in the left mid to lower lung zone. There is cardiomegaly. Right lung is clear. Osseous structures are intact. CONCLUSION: Left lung infiltrate. Electronically signed by: Rickie Marie MD 05/11/2018 3:55 PM EDT
[2018-05-11 16:23] LABS: Bilirubin,Urine Negative (Negative); Clarity,Urine Cloudy (Clear); Color,Urine Amber (Yellw/Straw); Glucose,Urine (UA) Negative (Negative); Hyaline Casts,Urine 38 /lpf (0-3); Leukocyte Esterase,Urine Negative (Negative); Nitrite,Urine Negative (Negative); Specific Gravity,Urine 1.017 (1.002-1.035); Urobilinogen,Urine 4 or Greater mg/dL (Less than 2)
[2018-05-11] MEDS ORDERED: Octreotide Inj 50 MCG/ML Vial IV.PUSH ONE (16:36)
[2018-05-11] MEDS ORDERED: Cefotaxime Inj 2,000 MG in Sodium Chloride 0.9% Inj 100 ML IV.SIG ONE (16:36)
[2018-05-11] MEDS ORDERED: Azithromycin 250 MG Tablet PO ONE (17:00)
[2018-05-11] MEDS ORDERED: Bisacodyl 10 MG Supp RECTAL PRN (17:37)
--- NOTE | 2018-05-11 17:50 | P.HPCC ---
History of Present Illness Service: Critical care medicine Primary Care Physician: Steven Freeman Chief Complaint: Right sided abdominal pain History of Present Illness: This 62-year-old gentleman with long-standing alcoholic cirrhosis including varices and ascites has an unclear history for the past several weeks. He is developed extensive edema in his lower extremities extending up to the groin. He has fallen recently and has a mild erythema to his right lateral abdominal wall. He presently is encephalopathic although does appear to answer some simple questions accurately. He was seen by his local curator of collections to send him to the emergency department because of worsening abdominal pain. On arrival he has a white count of 18,000 and tachycardia. Although he is grossly swollen and edematous his neck veins are flat. Lactic acid is 12.7. Several medications have been ordered by the gastroenterology service and I will attempt to fill in the gaps. - Diagnosis (1) Metabolic acidosis (2) Alcoholic cirrhosis of liver with ascites (3) Elevated lactic acid level (4) Hepatic encephalopathy (5) SBP (spontaneous bacterial peritonitis) Inpatient Certification: I certify that the inpatient services were ordered in accordance with Medicare regulations governing the order. This includes certification that hospital inpatient services are reasonable and necessary and in the case of services not specified as inpatient-only under 42 CFR 419.22(n), that they are appropriately provided as inpatient services in accordance to with the 2-midnight benchmark under 43 CFR 412.3(e) Estimated Total Length of Stay (Days): 5 Plans for Post Hospital Care: SNF Review of Systems Confused, unable to obtain. PMF - History History Provided By: Patient - Medical / Surgical Hx Neg / Unobtainable Medical Problems Denied: Unable to Obtain Surgical History: Unable to Obtain - Medical History Medical History: Medical History (Last Reviewed 05/12/18 @ 12:02 by Janet Nolan) GERD (gastroesophageal reflux disease) (Acute) History of cirrhosis of liver (Acute) - Surgical History Surgical History: Surgical History (Last Reviewed 05/12/18 @ 12:02 by Janet Nolan) History of right hip replacement (Acute) - Tobacco History Second Hand Smoke Exposure: Yes Tobacco Use In Past 30 Days: Yes Smoking Status: Current every day smoker Tobacco Type: Cigarettes - Alcohol History How Often Do You Have a Drink Containing Alcohol: Never - Substance Use History Substance History: Past History - Substance Use Type Alcohol Status: Early Remission Route Used: By Mouth - Travel History Recent Travel in the [place] Within the Last 8 Weeks: No Recent Travel Out of the Country Within the Last 8 Weeks: No - Immunization History Tetanus Immunization: Unsure Hx Influenza Vaccine This Season: Yes Medications and Allergies Active Medications: Active Medications Al Hydroxide/Mg Hydroxide (Milk Of Magnesia Liq) 30 ml PO Q12H PRN PRN Reason: Mild Constipation Bisacodyl (Dulcolax Supp) 10 mg RECTAL DAILY PRN PRN Reason: SEVERE CONSITIPATION Chlorhexidine Gluconate (Chlorhexidine 2% Cloth) 3 pack TOPICAL DAILY@0400 [place] Stop: 05/17/18 03:59 Chlorhexidine Gluconate (Chlorhexidine 2% Cloth) 3 pack TOPICAL DAILY@0400 PRN PRN Reason: Extra cloth needed Stop: 05/17/18 03:59 Famotidine (Pepcid Pf Inj) 20 mg IV.PUSH Q12HR [place] Octreotide Acetate 500 mcg/ (Sodium Chloride) 500.5 mls @ 50.05 mls/hr IV.CONT .Q10H [place] Ceftriaxone Sodium 1,000 mg/ (Sodium Chloride) 100 mls @ 200 mls/hr IV.SIG Q24H [place] Lactulose (Lactulose Liq) 30 ml PO DAILY PRN PRN Reason: SEVERE CONSITIPATION Lactulose (Lactulose Liq) 30 ml PO TID [place] Senna/Docusate Sodium (Marcie-Colace) 1 tab PO BID [place] Sennosides (Senokot) 17.2 mg PO Q12H PRN PRN Reason: Moderate Constipation Sodium Chloride (Ns Flush) 2 ml IV.FLUSH BID [place] Sodium Chloride (Ns Flush) 2 ml IV.FLUSH PRN PRN PRN Reason: FLUSH AFTER USING IV ACCESS Allergies Allergy/AdvReac Type Severity Reaction Status Date / Time No Known Allergies Allergy Verified 05/11/18 13:08 Home Medications Medication Instructions Recorded Confirmed Type ciprofloxacin (mixture) 500 mg PO 5XW 05/09/18 05/11/18 History esomeprazole magnesium [Nexium] 40 mg PO DAILY 05/09/18 05/11/18 History furosemide [Lasix] 40 mg PO DAILY 05/09/18 05/11/18 History lactulose 15 g PO TID 05/09/18 05/11/18 History lidocaine 1 patch TOPICAL DAILY 05/09/18 05/11/18 History tamsulosin [Flomax] 0.4 mg PO DAILY 05/09/18 05/11/18 History zolpidem [Ambien] 10 mg PO HS 05/09/18 05/11/18 History spironolactone 100 mg PO DAILY 05/11/18 05/11/18 History Results - Labs CBC & Chem 7: 05/12/18 19:07 05/12/18 19:07 Labs: Short CBC 05/11/18 Range/Units 14:50 WBC 18.5 H (4.0-11.0) th/mm3 Hgb 7.5 L (13.0-17.0) gm/dL Hct 22.1 L (39.0-51.0) % Plt Count 169 (150-450) th/mm3 BMP 05/11/18 14:50 Sodium 127 L Potassium 4.7 Chloride 89 L Carbon Dioxide 14.8 L BUN 44 H Creatinine 2.13 H Calcium 7.8 L Liver Function 05/11/18 Range/Units 14:50 Total Bilirubin 4.5 H (0.2-1.0) mg/dL AST 108 H (15-37) U/L ALT 45 (12-78) U/L Alkaline Phosphatase 137 H (45-117) U/L Albumin 1.7 L (3.4-5.0) g/dL Urine 05/11/18 Range/Units 15:55 Urine Color [place] (Yellw/Straw) Urine Clarity Cloudy H (Clear) Urine pH 5.0 (5.0-8.5) Ur Specific [place] 1.017 (1.002-1.035) Urine Protein Negative (Neg-Trace) mg/dL Urine Glucose (UA) Negative (Negative) mg/dL - Imaging Impressions Head CT 05/11/18 14:39 CONCLUSION: 1. No acute findings. . Chest X-Ray 05/11/18 14:40 CONCLUSION: Left lung infiltrate. Exam Vital signs: Vital Signs 05/11/18 13:08 05/11/18 15:02 Temperature 97.4 F L Pulse Rate 101 H 70 Respiratory Rate 20 16 Blood Pressure 101/49 L 103/52 L Pulse Oximetry 97 100 Intake & Output 05/10/18 05/11/18 05/11/18 18:59 06:59 18:59 Weight 88.904 kg Narrative: General: Slow speech, Soporific affect. Head: Atraumatic, normal. Neck: Supple, airway widely patent, no obstruction. Lungs: Clear bilaterally without wheezes or crackles, decreased breath sounds both bases, comfortable respiratory pattern, mild tachypnea. Heart: Normal S1-S2, no murmur or rub, neck veins are flat. Abdomen: Tensely distended, fluid wave present. Tenderness appears localized to the right lateral abdominal wall. No peritoneal irritation. Bowel sounds absent. Mild erythema involving the right lateral abdominal wall. Extremities: 3+ edema both lower extremities extending well above the knee. Neuro: Wiggles toes and fingers to command. Withdraws 4 limbs to stimulation. Answers simple questions slowly with slurred speech. Pupils reactive, tracks with eyes. Caprini VTE Risk Assessment Caprini VTE Risk Assessment: Moderate/High Risk (score >= 2) Caprini Risk Assessment Model: Point Value = 1 Point Value = 2 Point Value = 3 Point Value = 5 Age 41-60 Minor surgery BMI > 25 kg/m2 Swollen legs Varicose veins or History of unexplained or recurrent spontaneous Oral contraceptives or hormone replacement Sepsis (< 1 month) Serious lung disease, including pneumonia (< 1 month) Abnormal pulmonary function Acute myocardial infarction Congestive heart failure (< 1 month) History of inflammatory bowel disease Medical patient at bed rest Age 61-74 Arthroscopic surgery Major open surgery (> 45 min) Laparoscopic surgery (> 45 min) Malignancy Confined to bed (> 72 hours) Immobilizing plaster cast Central venous access Age >= 75 History of VTE Family history of VTE Factor V Leiden Prothrombin [id number] Lupus anticoagulant Anticardiolipin antibodies Elevated serum homocysteine Heparin-induced thrombocytopenia Other congenital or acquired thrombophilia Stroke (< 1 month) Elective arthroplasty Hip, pelvis, or leg fracture Acute spinal cord injury (< 1 month) Prophylaxis Regimen: Total Risk Factor Score Risk Level Prophylaxis Regimen 0-1 Low Early ambulation 2 Moderate Order ONE of the following: *Sequential Compression Device (SCD) *Heparin 5000 units SQ BID 3-4 Higher Order ONE of the following medications: *Heparin 5000 units SQ TID *Enoxaparin/Lovenox 40 mg SQ daily (WT < 150 kg, CrCl > 30 mL/min) *Enoxaparin/Lovenox 30 mg SQ daily (WT < 150 kg, CrCl > 10-29 mL/min) *Enoxaparin/Lovenox 30 mg SQ BID (WT < 150 kg, CrCl > 30 mL/min) AND/OR *Sequential Compression Device (SCD) 5 or more Highest Order ONE of the following medications: *Heparin 5000 units SQ TID (Preferred with Epidurals) *Enoxaparin/Lovenox 40 mg SQ daily (WT < 150 kg, CrCl > 30 mL/min) *Enoxaparin/Lovenox 30 mg SQ daily (WT < 150 kg, CrCl > 10-29 mL/min) *Enoxaparin/Lovenox 30 mg SQ BID (WT < 150 kg, CrCl > 30 mL/min) AND *Sequential Compression Device (SCD) Assessment and Plan - Problem List (1) Metabolic acidosis Code(s): E87.2 - Acidosis Status: Deleted (2) Alcoholic cirrhosis of liver with ascites Code(s): K70.31 - Alcoholic cirrhosis of liver with ascites Status: Deleted (3) Elevated lactic acid level Code(s): R79.89 - Other specified abnormal findings of blood chemistry Status : Deleted (4) Hepatic encephalopathy Code(s): K72.90 - Hepatic failure, unspecified without coma Status: Deleted (5) SBP (spontaneous bacterial peritonitis) Code(s): K65.2 - Spontaneous bacterial peritonitis Status: Deleted - Assessment and Plan Plan: Plan: Neuro: -Lactulose 30 mg p.o. 3 times daily -Rifaximin -No sedation CV: -Vasopressor as needed to keep map over 65 -Bicarb drip infusion Respiratory: -Did not lay flat, keep head of bed elevated at least 30 -ABG a.m. -Incentive spirometry to re-aerated bases Renal: -Will likely require gentle hydration, particularly after tap. -Follow renal function closely, avoid nephrotoxins GI: -Keep n.p.o. -Paracentesis for diagnostic and therapeutic purposes has been ordered by the GI service. -Serial hemoglobin determination -Check coagulation profile ID: -Broad coverage for possible SBP ordered by GI service. -Blood urine and sputum cultures today Prophylaxis: -Protonix for GI ulcer prophylaxis -Avoid chemical DVT prophylaxis due to high risk of bleeding -SCDs Overall impression: This gentleman is critically ill with it appears to be chronic alcohol cirrhosis with recent gross accumulation of fluid in the lower extremities and abdomen. Bacterial peritonitis appears to be the most likely immediate problem. Critical care 45 minutes aside from procedures.
--- NOTE | 2018-05-11 17:50 | P.CONGI ---
History of Present Illness Consult date: 05/11/18 Consult reason: Cirrhosis Chief complaint: SBP, Pneumonia History of Present Illness: This is a 62 yo M with PMH significant for cirrhosis secondary to ETOH abuse. Pt has been previously seen by our service both in the hospital and outpatient, first encounter was in March of this year when he was diagnosed with alcoholic hepatitis. Pt presented to the office today with complaints of abdominal pain, abdominal swelling, leg pain, and SOB. He was evaluated by Dr. Meier and sent to the hospital for admission. Pt is currently lying in bed, poor historian. Denies any fever, chills. States the abdominal pain and swelling has been getting worse for a few weeks. Denies previous paracentesis. Denies nausea, vomiting, changes in bowel habits, blood in his stool. Does reports taking Lactulose at home, denies confusion but does report he has been excessively fatigued lately. Review of Systems Constitutional: Reports fatigue, Denies chills, Denies fever(s) Gastrointestinal: Reports abdominal pain, Denies black, tarry stools, Denies bright, red blood in stools, Denies change in bowel habits, Denies nausea, Denies vomiting Comments: abdominal bloating Comments: BLE edema PMFSH - History History Provided By: Patient - Medical History Medical History: Medical History (Last Reviewed 05/11/18 @ 14:59 by Adilia Ledezma) GERD (gastroesophageal reflux disease) (Acute) History of cirrhosis of liver (Acute) - Surgical History Surgical History: Surgical History (Last Reviewed 05/11/18 @ 14:59 by Adilia Ledezma) History of right hip replacement (Acute) - Tobacco History Second Hand Smoke Exposure: Yes Tobacco Use In Past 30 Days: Yes Smoking Status: Current every day smoker Tobacco Type: Cigarettes - Alcohol History How Often Do You Have a Drink Containing Alcohol: Never - Substance Use History Substance History: Past History - Substance Use Type Alcohol Status: Early Remission Route Used: By Mouth - Travel History Recent Travel in the [place] Within the Last 8 Weeks: No Recent Travel Out of the Country Within the Last 8 Weeks: No - Immunization History Tetanus Immunization: Unsure Hx Influenza Vaccine This Season: Yes Medications and Allergies Active Medications: Active Medications Octreotide Acetate 500 mcg/ (Sodium Chloride) 500.5 mls @ 50.05 mls/hr IV.CONT .Q10H GALLITO Allergies Allergy/AdvReac Type Severity Reaction Status Date / Time No Known Allergies Allergy Verified 05/11/18 13:08 Home Medications Medication Instructions Recorded Confirmed Type ciprofloxacin (mixture) 500 mg PO 5XW 05/09/18 05/11/18 History esomeprazole magnesium [Nexium] 40 mg PO DAILY 05/09/18 05/11/18 History furosemide [Lasix] 40 mg PO DAILY 05/09/18 05/11/18 History lactulose 15 g PO TID 05/09/18 05/11/18 History lidocaine 1 patch TOPICAL DAILY 05/09/18 05/11/18 History tamsulosin [Flomax] 0.4 mg PO DAILY 05/09/18 05/11/18 History zolpidem [Ambien] 10 mg PO HS 05/09/18 05/11/18 History spironolactone 100 mg PO DAILY 05/11/18 05/11/18 History Exam Vital signs: Vital Signs 05/11/18 13:08 05/11/18 15:02 Temperature 97.4 F L Pulse Rate 101 H 70 Respiratory Rate 20 16 Blood Pressure 101/49 L 103/52 L Pulse Oximetry 97 100 Intake & Output 05/10/18 05/11/18 05/11/18 18:59 06:59 18:59 Weight 88.904 kg - Constitutional no acute distress - Routine HEENT Exam Head: Present: normocephalic, atraumatic Eye: Present: conjunctival icterus - Routine Respiratory Exam Comments: Shallow respirations, tachypneic - Routine Abdominal Exam Present: soft, normoactive bowel sounds, tenderness, distended - Routine Skin Exam Present: dry, warm, jaundice - Routine Neurological Exam Present: alert, oriented X3 Results - Labs CBC & Chem 7: 05/11/18 14:50 05/11/18 14:50 Labs: Laboratory Results - last 24 hr 05/11/18 05/11/18 05/11/18 14:50 14:50 14:50 WBC 18.5 H RBC 2.08 L Hgb 7.5 L Hct 22.1 L MCV 106.2 H MCH 35.9 H MCHC 33.8 RDW 15.1 Plt Count 169 MPV 9.1 Prelim Diff (Auto) Slide review pending Neut % (Auto) 80.9 H Lymph % (Auto) 8.3 L [place] % (Auto) 10.4 H Eos % (Auto) 0.2 Baso % (Auto) 0.2 Neut # (Auto) 15.0 H Lymph # (Auto) 1.5 [place] # (Auto) 1.9 H Eos # (Auto) 0.0 Baso # (Auto) 0.0 WBC Differential . Diff Scan Auto diff confirmed Differential Comment . Platelet Estimate Normal Platelet Morphology Normal PT 19.8 H INR 2.0 APTT 31.0 H Sodium 127 L Potassium 4.7 Chloride 89 L Carbon Dioxide 14.8 L Anion Gap 23 H BUN 44 H Creatinine 2.13 H Estimated GFR 31 L Random Glucose 82 Lactic Acid Calcium 7.8 L Magnesium 2.3 Total Bilirubin 4.5 H AST 108 H ALT 45 Alkaline Phosphatase 137 H Ammonia Total Protein 5.2 L D Albumin 1.7 L Urine Color Urine Clarity Urine pH Ur Specific Leonard Urine Protein Urine Glucose (UA) Urine Ketones Urine Occult Blood Urine Nitrate Urine Bilirubin Urine Urobilinogen Ur Leukocyte Esterase Urine RBC Urine WBC Hyaline Casts Micro UA Comment Ur Microscopic Review Urine Culture Comments 05/11/18 05/11/18 05/11/18 14:50 15:50 15:55 WBC RBC Hgb Hct MCV MCH MCHC RDW Plt Count MPV Prelim Diff (Auto) Neut % (Auto) Lymph % (Auto) [place] % (Auto) Eos % (Auto) Baso % (Auto) Neut # (Auto) Lymph # (Auto) [place] # (Auto) Eos # (Auto) Baso # (Auto) WBC Differential Diff Scan Differential Comment Platelet Estimate Platelet Morphology PT INR APTT Sodium Potassium Chloride Carbon Dioxide Anion Gap BUN Creatinine Estimated GFR Random Glucose Lactic Acid 12.7 H* Calcium Magnesium Total Bilirubin AST ALT Alkaline Phosphatase Ammonia 14 Total Protein Albumin Urine Color [place] Urine Clarity Cloudy H Urine pH 5.0 Ur Specific Leonard 1.017 Urine Protein Negative Urine Glucose (UA) Negative Urine Ketones Negative Urine Occult Blood Small H Urine Nitrate Negative Urine Bilirubin Negative Urine Urobilinogen 4 or greater Ur Leukocyte Esterase Negative Urine RBC 1 Urine WBC 14 H Hyaline Casts 38 Micro UA Comment Culture indicated Ur Microscopic Review Not Reportable Urine Culture Comments Culture indicated - Imaging Impressions Head CT 05/11/18 14:39 CONCLUSION: 1. No acute findings. . Chest X-Ray 05/11/18 14:40 CONCLUSION: Left lung infiltrate. Assessment and Plan - Plan Assessment: - Cirrhosis secondary to ETOH abuse- reports he quit drinking a few weeks ago Sent to the hospital for admission after being evaluated at the GI office today, complaints of abdominal pain and swelling for the past few weeks as well as BLE swelling. Pt denies previous paracentesis. He is on diuretics OP, Spironolactone and Lasix. Pt denies nausea, vomiting, changes in bowel habits, blood in his stool Coagulopathy and hypoalbuminemia secondary to cirrhosis. No thrombocytopenia. Previous liver work up: VALENTINE, ASMA, AMA negative. Hepatitis panel negative. Celiac panel negative. Iron -50 TIBC-211 %sat-23.7 Ferritin-394 Ceruloplasmin-23 - Sepsis, question of SBP- has been started on IV Rocephin - Anemia- no obvious source of GIB - macrocytic, hyperchromic- likely partially due to folate deficiency Plan: US paracentesis Start tx for SBP- Rocephin Monitor LFTs Avoid hepatotoxins DF- 40, no steroids, currently septic Electrolyte replacement per primary team Lactulose Xifaxan Monitor ammonia Diuretics on hold, electrolyte imbalance, impaired renal function Further recommendations to follow Pt has been seen and examined by myself and Dr. Wade and this note is written on his behalf
[2018-05-11] MEDS: Octreotide Inj 500 MCG in Sodium Chlor 0.9% Inj 500 ML IV.CONT SCH (17:51)
[2018-05-11] MEDS ORDERED: Vancomycin Consult Pharmacy OTHER PRN (18:06)
[2018-05-11] MEDS ORDERED: Sod Chloride 0.9% Inj 1,000 ML IV.SIG SCH (18:10)
[2018-05-11] MEDS ORDERED: Succinylcholine Inj 200 MG/10 ML Vial IV.PUSH ONE (20:20)
[2018-05-11] MEDS ORDERED: fentaNYL Citrate Inj 100 MCG/2 ML Ampul ONE (20:22)
[2018-05-11] MEDS ORDERED: Midazolam Inj 5 MG/ML 1 ML Vial ONE (20:22)
[2018-05-11] MEDS ORDERED: fentaNYL Citrate Inj 100 MCG/2 ML Ampul IV.PUSH ONE (20:25)
[2018-05-11] MEDS ORDERED: Famotidine PF Inj 20 MG/2 ML Vial IV.PUSH SCH (21:00)
[2018-05-11] MEDS ORDERED: Famotidine 20 MG Tablet PO SCH (21:00)
[2018-05-11 21:34] LABS: Mean Corpuscular Volume 112.5 fL (80.0-100.0); Mean Platelet Volume 8.8 fL (7.0-11.0); Platelet Count 155 th/mm3 (150-450); Red Blood Count 1.79 mil/mm3 (4.50-5.90); Red Cell Distribution Width 15.6 % (11.6-17.2); White Blood Count 22.7 th/mm3 (4.0-11.0)
[2018-05-11 21:39] LABS: Hematocrit 20.1 % (39.0-51.0); Hemoglobin 6.4 gm/dL (13.0-17.0)
[2018-05-11 21:52] LABS: INR 2.4 Ratio; Prothrombin Time 24.5 sec (9.8-11.6)
[2018-05-11] MEDS ORDERED: Vancomycin Inj 2,000 MG in Sodium Chlor 0.9% Inj 500 ML IV.SIG ONE (22:00)
[2018-05-11 22:12] LABS: Total Protein 4.8 g/dL (6.4-8.2)
--- NOTE | 2018-05-11 22:20 | XR ---
EXAM DATE: 05/11/2018 9:52 PM EDT AGE/SEX: 62 years / Male INDICATIONS: Endotracheal intubation. CLINICAL DATA: This is the patient's subsequent encounter. Patient reports that signs and symptoms h ave been present for 1 day and indicates a pain score of Nonresponsive. MEDICAL/SURGICAL HISTORY: . Gastroesophageal reflux disease. Cirrhosis. Reflux, GI bleed. . Ri ght hip surgery COMPARISON: [facility], CHEST 1V SINGLE AP, 05/11/2018. . FINDINGS: The patient is intubated with the tip of ET tube 5 cm from the amina. There is a left internal jugul ar central line in place with the tip overlying the SVC. The heart size is normal. There is increased density at the mid and lower left lung. There are some minimal increased density at the right lower lung. No pneumothorax is seen. CONCLUSION: ET tube in good position. Left subclavian line in good position. Hazy density at the mid and lower left lung secondary to consolidation, atelectasis and/or effusion. Mild atelectasis or consolidation at the right base. Electronically signed by: Steven Chang MD 05/11/2018 10:19 PM EDT
[2018-05-11] MEDS: Senna/Docusate Sodium 8.6/50 MG Tablet PO SCH (22:40)
[2018-05-11] MEDS: rifAXIMin 550 MG Tablet PO SCH (22:40)
[2018-05-11] MEDS: Sodium Bicarbonate 8.4% Inj 100 MEQ in Dextrose 5% in Water Inj 900 ML IV.CONT SCH ×2 (22:42)
[2018-05-11] MEDS: Vasopressin Inj 40 UNIT in Dextrose 5% in Water Inj 98 ML IV.CONT PRN ×2 (22:43)
[2018-05-11] MEDS ORDERED: Sodium Chlor 0.9% Inj 250 ML IV.SIG SCH (23:00)
[2018-05-11] MEDS ORDERED: Sod Chloride 0.9% Inj 2,000 ML IV.SIG ONE (23:00)
--- NOTE | 2018-05-11 23:12 | P.PNCC ---
Subjective Subjective Remarks/Hospital Course: Endotracheal Intubation A time-out was completed verifying correct patient, procedure, site, positioning , and special equipment if applicable. The patient was placed in a flat position. Sedation was obtained using Etomidate 20mg. The patient was easily ventilated using an ambu bag. The [employer]/ MAC 4 BLADE was used and inserted into the oropharynx at which time there was a Grade 1 view of the vocal cords. A 8-maori endotracheal tube was inserted and visualized going through the vocal cords. The stylette was removed. Colorimetric change was visualized on the CO2 meter. Breath sounds were heard in both lung monique equally. The endotracheal tube was placed at 23 cm, measured at the teeth. A chest x-ray was ordered to assess for pneumothorax and verify endotrachealtube placement. Estimated Blood Loss: 0 The patient tolerated the procedure well and there were no complications. Objective Vital Signs / I&O: Vital Signs 05/11/18 13:08 05/11/18 15:02 05/11/18 17:30 Temperature 97.4 F L Pulse Rate 101 H 70 106 H Respiratory Rate 20 16 20 Blood Pressure 101/49 L 103/52 L 96/51 L Pulse Oximetry 97 100 99 05/11/18 18:30 05/11/18 20:35 Temperature Pulse Rate 105 H Respiratory Rate 20 16 Blood Pressure 90/44 L Pulse Oximetry 92 L Intake & Output 05/11/18 05/11/18 05/12/18 06:59 18:59 06:59 Weight 88.904 kg 95.5 kg Other: Weight On Admission 95.5 kg Result Diagrams: 05/11/18 21:15 05/11/18 14:50 Assessment and Plan - Problem List (1) Metabolic acidosis Code(s): E87.2 - Acidosis Status: Acute (2) Alcoholic cirrhosis of liver with ascites Code(s): K70.31 - Alcoholic cirrhosis of liver with ascites Status: Acute (3) Elevated lactic acid level Code(s): R79.89 - Other specified abnormal findings of blood chemistry Status : Acute (4) Hepatic encephalopathy Code(s): K72.90 - Hepatic failure, unspecified without coma Status: Acute (5) SBP (spontaneous bacterial peritonitis) Code(s): K65.2 - Spontaneous bacterial peritonitis Status: Acute - Assessment and Plan Plan: Plan: Neuro: -Lactulose 30 mg p.o. 3 times daily -Rifaximin -No sedation CV: -Vasopressor as needed to keep map over 65 -Bicarb drip infusion Respiratory: -Did not lay flat, keep head of bed elevated at least 30 -ABG a.m. -Incentive spirometry to re-aerated bases Renal: -Will likely require gentle hydration, particularly after tap. -Follow renal function closely, avoid nephrotoxins GI: -Keep n.p.o. -Paracentesis for diagnostic and therapeutic purposes has been ordered by the GI service. -Serial hemoglobin determination -Check coagulation profile ID: -Broad coverage for possible SBP ordered by GI service. -Blood urine and sputum cultures today Prophylaxis: -Protonix for GI ulcer prophylaxis -Avoid chemical DVT prophylaxis due to high risk of bleeding -SCDs Overall impression: This gentleman is critically ill with it appears to be chronic alcohol cirrhosis with recent gross accumulation of fluid in the lower extremities and abdomen. Bacterial peritonitis appears to be the most likely immediate problem. Critical care 45 minutes aside from procedures.
--- NOTE | 2018-05-11 23:15 | P.PCN ---
Date of procedure: 05/11/18 Pre-op diagnosis: Shock Post-op diagnosis: same Procedure: Central line placement A time-out was completed verifying correct patient, procedure, site, positioning , and special equipment if applicable. The patient was placed in a dependent position appropriate for central line placement based on the vein to be cannulated. The patients left neck was prepped and draped in sterile fashion. 1 % Lidocaine was used to anesthetize the surrounding skin area. A triple lumen 9 [place] Cordis catheter was introduced into the the internal jugular vein using the Seldinger technique and under ultrasound guidance. The catheter was threaded smoothly over the guide wire and appropriate blood return was obtained. Each lumen of the catheter was evacuated of air and flushed with sterile saline. The catheter was then sutured in place to the skin and a sterile dressing applied. Perfusion to the extremity distal to the point of catheter insertion was checked and found to be adequate. Estimated Blood Loss: 1ml The patient tolerated the procedure well and there were no complications.
--- NOTE | 2018-05-11 23:15 | P.PCN ---
Date of procedure: 05/11/18 Pre-op diagnosis: Respiratory failure Post-op diagnosis: same Procedure: Endotracheal Intubation A time-out was completed verifying correct patient, procedure, site, positioning , and special equipment if applicable. The patient was placed in a flat position. Sedation was obtained using Etomidate 20mg. The patient was easily ventilated using an ambu bag. The [employer]/ MAC 4 BLADE was used and inserted into the oropharynx at which time there was a Grade 1 view of the vocal cords. A 8-cuban endotracheal tube was inserted and visualized going through the vocal cords. The stylette was removed. Colorimetric change was visualized on the CO2 meter. Breath sounds were heard in both lung monique equally. The endotracheal tube was placed at 23 cm, measured at the teeth. A chest x-ray was ordered to assess for pneumothorax and verify endotrachealtube placement. Estimated Blood Loss: 0 The patient tolerated the procedure well and there were no complications. Condition: critical Disposition: ICU
[2018-05-12 01:36] LABS: ABG Base Excess -22.3 mmol/L (-2-2); ABG PCO2 39 mmHg (38-42); ABG PO2 92 mmHG (61-120)
[2018-05-12] MEDS: Octreotide Inj 500 MCG in Sodium Chlor 0.9% Inj 500 ML IV.CONT SCH ×3 (03:55→23:15)
[2018-05-12] MEDS ORDERED: Chlorhexidine Gluconate 2% 1 Pack (2 Cloths) TOPICAL PRN (04:00)
[2018-05-12] MEDS ORDERED: Chlorhexidine Gluconate 2% 1 Pack (2 Cloths) TOPICAL SCH (04:00)
[2018-05-12] MEDS ORDERED: Sodium Bicarbonate 8.4% Inj 50 MEQ/50 ML Syringe IV.CONT ONE (05:00)
[2018-05-12] MEDS ORDERED: Calcium Chloride Inj 1 GM/10 ML Syringe IV.CONT ONE (05:00)
[2018-05-12] MEDS: Sodium Bicarbonate 8.4% Inj 100 MEQ in Dextrose 5% in Water Inj 900 ML IV.CONT SCH ×2 (07:12)
--- NOTE | 2018-05-12 07:52 | P.PNCC ---
Subjective Subjective Remarks/Hospital Course: This 62-year-old gentleman with long-standing alcoholic cirrhosis including varices and ascites has an unclear history for the past several weeks. He is developed extensive edema in his lower extremities extending up to the groin. He has fallen recently and has a mild erythema to his right lateral abdominal wall. He presently is encephalopathic although does appear to answer some simple questions accurately. He was seen by his local driller helper to send him to the emergency department because of worsening abdominal pain. On arrival he has a white count of 18,000 and tachycardia. Although he is grossly swollen and edematous his neck veins are flat. Lactic acid is 12.7. Several medications have been ordered by the gastroenterology service and I will attempt to fill in the gap. SUBJECTIVE: 05/12: Required intubation overnight replacement central line. Currently on 2 vasopressors with minimal urine output. Unable to do paracentesis secondary to coagulopathy. Remains on broad-spectrum antibiotics. Lactic acid currently 18. Received FFP and 3 PRBCs overnight. Objective Vital Signs / I&O: Vital Signs 05/11/18 13:08 05/11/18 15:02 05/11/18 17:30 Temperature 97.4 F L Pulse Rate 101 H 70 106 H Respiratory Rate 20 16 20 Blood Pressure 101/49 L 103/52 L 96/51 L Pulse Oximetry 97 100 99 05/11/18 18:15 05/11/18 18:30 05/11/18 20:00 Temperature Pulse Rate 104 H 105 H 99 H Respiratory Rate 20 20 19 Blood Pressure 90/44 L 90/44 L 74/35 L Pulse Oximetry 96 90 L 05/11/18 20:35 05/11/18 22:00 05/11/18 23:20 Temperature 91.8 F L Pulse Rate 94 H 101 H Respiratory Rate 16 20 Blood Pressure 100/56 L Pulse Oximetry 92 L 99 05/11/18 23:22 05/11/18 23:32 05/11/18 23:37 Temperature 91.5 F L 91 F L Pulse Rate 100 H Respiratory Rate 17 20 Blood Pressure 92/51 L Pulse Oximetry 100 100 05/12/18 00:00 05/12/18 00:08 05/12/18 00:30 Temperature 91.8 F L 92 F L 92.1 F L Pulse Rate 101 H 101 H 101 H Respiratory Rate 21 21 21 Blood Pressure 113/71 113/71 111/57 L Pulse Oximetry 99 97 92 L 05/12/18 00:50 05/12/18 01:33 05/12/18 02:00 Temperature 92.3 F L 93 F L Pulse Rate 104 H 108 H 109 H Respiratory Rate 24 22 Blood Pressure 109/57 L 100/51 L Pulse Oximetry 96 92 L 05/12/18 02:10 05/12/18 02:35 05/12/18 03:11 Temperature 93.4 F L 93.5 F L 93.7 F L Pulse Rate 109 H 110 H 110 H Respiratory Rate 22 22 23 Blood Pressure 105/56 L 99/54 L 101/59 L Pulse Oximetry 99 98 94 L 05/12/18 03:15 05/12/18 04:00 05/12/18 04:27 Temperature 94.5 F L 94.4 F L Pulse Rate 112 H 113 H Respiratory Rate 23 23 24 Blood Pressure 106/55 L 101/54 L Pulse Oximetry 97 97 96 05/12/18 05:19 05/12/18 06:00 05/12/18 07:09 Temperature 95.7 F L 97.1 F L Pulse Rate 111 H 109 H 109 H Respiratory Rate 23 21 Blood Pressure 90/53 L 88/49 L Pulse Oximetry 94 L 94 L 05/12/18 07:20 05/12/18 07:37 Temperature 97.3 F L 97.3 F L Pulse Rate 110 H 109 H Respiratory Rate 22 Blood Pressure 93/53 L 88/51 L Pulse Oximetry Intake & Output 05/11/18 05/12/18 05/12/18 18:59 06:59 18:59 Intake Total 6118 / 6118 1400 / 1400 Output Total 615 / 615 Balance 5503 / 5503 1400 / 1400 Weight 88.904 kg 102.5 kg Intake: IV 3800 / 3800 1000 / 1000 SandoSTATIN Inj 500 MCG In NS 515 / 515 Inj 500 ML @ 50 MCG/HR 50.05 mls/hr IV.CONT .Q10H GALLITO Rx#: [id number] Sodium Bicarbonate 8.4% Inj 100 1000 / 1000 MEQ In D5W Inj 900 ML @ 84 mls /hr IV.CONT .[id number] GALLITO Rx#: [id number] Levophed-Dextrose 4 mg/250 ml 750 / 750 Drip 4 mg In 250 ml @ 2 MCG/MIN 7.5 mls/hr IV.SIG TITRATE PRN Rx#:[id number] NS Inj 2,000 ML @ As Directed 1999 / 1999 IV.SIG BOLUS ONE Rx#:[id number] Vancomycin Inj 2,000 MG In NS 535 / 535 Inj 500 ML @ 250 mls/hr IV.SIG ONCE ONE Rx#:[id number] Other 135 / 135 Plasma Thawed 5 Day Acda Unit 85 / 85 [id number] Plasma Thawed 5 Day Cp2d Unit 50 / 50 [id number] Intake (Blood Product) Amt 2183 / 2183 400 / 400 Plasma Thawed 5 Day Acda Unit 227 / 227 [id number] Plasma Thawed 5 Day Cp2d Unit 313 / 313 [id number] Plasma Thawed 5 Day Cp2d Unit 300 / 300 [id number] Plasma Thawed 5 Day Cp2d Unit 287 / 287 [id number] Plasma Thawed 5 Day Cp2d Unit 338 / 338 [id number] Plasma Thawed 5 Day Cp2d Unit 318 / 318 [id number] Rbc As-3 Leukoreduced Unit 0 / 0 400 / 400 [id number] Rbc As-3 Leukoreduced Unit 0 / 0 [id number] Rbc As-3 Leukoreduced Unit 400 / 400 [id number] Output: Urine 165 / 165 Gastric Drainage 450 / 450 Orogastric Tube 450 / 450 Other: Weight On Admission 95.5 kg Result Diagrams: 05/11/18 21:15 05/11/18 14:50 Imaging: Chest X-Ray 05/11/18 00:00 CONCLUSION: ET tube in good position. Left subclavian line in good position. Hazy density at the mid and lower left lung secondary to consolidation, atelectasis and/or effusion. Mild atelectasis or consolidation at the right base. Head CT 05/11/18 14:39 CONCLUSION: 1. No acute findings. . Chest X-Ray 05/11/18 14:40 CONCLUSION: Left lung infiltrate. Objective Remarks: GENERAL: 62-year-old -[place]is[place] male critically ill currently orotracheally intubated SKIN: Cool and dry. No rash per HEAD: Atraumatic. Normocephalic. EYES: Pupils equal and round. + scleral icterus. Upward deviation. ENT: No nasal bleeding or discharge. Mucous membranes pink and moist. NECK: Trachea midline. No JVD. CARDIOVASCULAR: Tachycardic, RR. S1, S2 no S4. 2/6 systolic murmur RESPIRATORY: No accessory muscle use. Clear to auscultation. Breath sounds equal bilaterally. GASTROINTESTINAL: Abdomen soft, protuberant and tender to palpation. Hypoactive bowel sounds appreciated MUSCULOSKELETAL: Extremities with 1+ peripheral edema. No obvious deformities. NEUROLOGICAL: Currently sedated on the ventilator Assessment and Plan - Assessment and Plan Plan: Neuro/Psych: Acute toxic metabolic encephalopathy Currently off all sedation not following commands. Propofol/fentanyl drips as needed for sedation/analgesia while intubated Goal of RA SS -[address] brain on admission 05/11 revealed no acute intracranial findings Thiamine 100 mg IV daily CV: Severe sepsis Lactic acidosis Currently D5 water will switch to sterile water with 3 ampules of bicarbonate 100cc an hour Norepinephrine currently at 24 m/min/vasopressin 0.04 U/min to maintain mean arterial pressure greater or equal to 65 Serial lactates until cleared Check Limited 2D echocardiogram Respiratory: Acute respiratory failure Ongoing tobaccoism Tobacco sensation self-evaluation cessation booklet will provide when clinically indicated [facility] 600/ Ventilator bundle Albuterol/ipratropium aerosols every 4 hours with albuterol aerosols every 2 hours as needed for dyspnea Follow-up on chest x-ray and ABG Renal: Acute kidney injury A.m. labs pending Check urine eosinophils, sodium and creatinine. 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 3 times daily with rifaximin 550 mg 2 times daily. Recheck ammonia level in a.m. 8 -No sedation -Paracentesis for diagnostic and therapeutic purposes has been ordered by the GI service. -Serial hemoglobin determination -Check coagulation profile -Pantoprazole drip at 8 mg an hour with octreotide drip at 50 mcg/hr DF 40 yesterday with high meld score. We calculated in a.m. ID: SBP? Severe sepsis -Broad coverage for possible SBP with cefotaxime 1 g every 8 hour/renally dosed with vancomycin -Blood urine and sputum cultures 05/11 all pending HEME: Leukocytosis Macrocytic anemia Acute coagulopathy Received 3 PRBCs and 6 FFP overnight. 10 mg phytonadione IV times now. Recheck coags, fibrinogen in hemoglobin now stat. Serial hemoglobins and coags Prophylaxis: -Pantoprazole for GI ulcer prophylaxis -Avoid chemical DVT prophylaxis due to high risk of bleeding -SCDs Overall impression: This gentleman is critically ill with it appears to be chronic alcohol cirrhosis with recent gross accumulation of fluid in the lower extremities and abdomen. Bacterial peritonitis appears to be the most likely immediate problem. Critical care 45 minutes aside from procedures.
[2018-05-12] MEDS ORDERED: Pantoprazole Inj 40 MG Vial IV.PUSH SCH (08:00)
[2018-05-12] MEDS: rifAXIMin 550 MG Tablet PO SCH ×2 (08:05→21:52)
[2018-05-12] MEDS: Senna/Docusate Sodium 8.6/50 MG Tablet PO SCH ×2 (08:05→21:52)
[2018-05-12] MEDS ORDERED: Pantoprazole Inj 80 MG in Sodium Chlor 0.9% Inj 35 ML IV.SIG ONE (08:30)
[2018-05-12] MEDS ORDERED: Propofol 1000 mg/100 ml Inj 1,000 MG/100 ML BOTTLE IV.CONT PRN (08:34)
[2018-05-12] MEDS ORDERED: fentaNYL 10 mcg/mL Premix Drip 2,500 MCG/250 ML BAG IV.SIG PRN (08:35)
[2018-05-12] MEDS ORDERED: Spironolactone 50 MG Tablet PO SCH (09:00)
[2018-05-12] MEDS ORDERED: LACTULOSE 15 GM PO SCH (09:00)
[2018-05-12] MEDS ORDERED: SODIUM CHLORIDE 0.9% IV.SIG SCH (09:00)
[2018-05-12] MEDS ORDERED: CEFOTAXIME IV.SIG SCH (09:00)
[2018-05-12] MEDS ORDERED: EPINEPHrine (1:1000) Inj 4 MG in Sodium Chlor 0.9% Inj 246 ML IV.CONT PRN (09:00)
[2018-05-12] MEDS ORDERED: Pantoprazole Inj 80 MG in Sodium Chlor 0.9% Inj 100 ML IV.CONT SCH ×2 (09:00→19:00)
[2018-05-12] MEDS ORDERED: Phytonadione Inj 10 MG in Sodium Chlor 0.9% Inj 50 ML IV.SIG ONE (09:00)
[2018-05-12] MEDS ORDERED: Thiamine Inj 100 MG in Sodium Chlor 0.9% Inj 100 ML IV.SIG SCH (09:00)
[2018-05-12] MEDS ORDERED: Furosemide 40 MG Tablet PO SCH (09:00)
[2018-05-12] MEDS: Norepinephrine Inj 16 MG in Sodium Chlor 0.9% Inj 234 ML IV.CONT PRN ×3 (09:11→18:54)
[2018-05-12] MEDS: Phenylephrine Inj 160 MG in Sodium Chlor 0.9% Inj 484 ML IV.CONT PRN ×2 (09:12→21:54)
[2018-05-12] MEDS: Sodium Bicarbonate 8.4% Inj 150 MEQ in Water for Inj, Sterile 850 ML IV.CONT SCH ×2 (09:12→18:54)
[2018-05-12 09:44] LABS: Baso # (Auto) 0.1 th/mm3 (0.0-0.2); Eos % (Auto) 0.1 % (0.0-4.0); Lymph # (Auto) 2.2 th/mm3 (1.0-4.8); Lymph % (Auto) 15.3 % (9.0-44.0); Mean Corpuscular HGB Conc 32.5 % (32.0-36.0); Mean Corpuscular Hemoglobin 32.6 pg (27.0-34.0); Mean Corpuscular Volume 100.5 fL (80.0-100.0); Mean Platelet Volume 8.7 fL (7.0-11.0); Mono # (Auto) 0.6 th/mm3 (0.0-0.9); Mono % (Auto) 4.3 % (0.0-8.0); Neut # (Auto) 11.6 th/mm3 (1.8-7.7); Neut % (Auto) 79.3 % (16.0-70.0); Platelet Count 75 th/mm3 (150-450); Red Blood Count 1.75 mil/mm3 (4.50-5.90); Red Cell Distribution Width 18.9 % (11.6-17.2); White Blood Count 14.6 th/mm3 (4.0-11.0)
[2018-05-12 09:55] LABS: Prothrombin Time 20.2 sec (9.8-11.6)
[2018-05-12 09:57] LABS: ABG Base Excess -19.8 mmol/L (-2-2); ABG PCO2 44 mmHg (38-42); ABG PO2 97 mmHG (61-120)
[2018-05-12] MEDS ORDERED: Sodium Bicarbonate 8.4% Inj 50 MEQ/50 ML Syringe ONE ×2 (10:03)
[2018-05-12 10:08] LABS: Hematocrit 17.6 % (39.0-51.0); Hemoglobin 5.7 gm/dL (13.0-17.0)
[2018-05-12 10:21] LABS: Acanthocytes 1+; Lymphocytes 10 % (9-44); Metamyelocytes 4 % (0-1); Monocytes 8 % (0-8); Ovalocytes 1+; Tallied Nucleated RBC 1 (0-0)
[2018-05-12] MEDS: Hypromellose 0.3% Opth Gel 10 GM Bottle EACH EYE SCH ×2 (10:21→21:52)
[2018-05-12 10:22] LABS: Toxic Granulation 1+; Toxic Vacuolation Present
[2018-05-12 10:24] LABS: Carbon Dioxide 13.5 meq/L (21.0-32.0); Potassium 5.5 meq/L (3.5-5.1)
[2018-05-12 10:25] LABS: Calcium 6.3 mg/dL (8.5-10.1); Magnesium 2.2 mg/dL (1.5-2.5); Phosphorus 8.6 mg/dL (2.5-4.9)
[2018-05-12] MEDS ORDERED: Prothrombin Complex Conc Inj 2,500 UNIT in Syringe/Bag 1 EACH IV.SIG ONE (11:00)
[2018-05-12 11:54] LABS: Total Protein 3.1 g/dL (6.4-8.2)
[2018-05-12] MEDS ORDERED: EPOPROSTENOL NEB SCH (12:30)
[2018-05-12] MEDS: Insulin NovoLOG Aspart Correctional Sugar Inj SQ SCH ×2 (12:38→17:34)
--- NOTE | 2018-05-12 13:10 | P.PNGI ---
Subjective Interval history: Events of the last few hours noted, currently critical , septic, intubated, hypotensive and bleeding. Physical Exam Vital signs: Vital Signs 05/11/18 13:08 05/11/18 15:02 05/11/18 17:30 Temperature 97.4 F L Pulse Rate 101 H 70 106 H Respiratory Rate 20 16 20 Blood Pressure 101/49 L 103/52 L 96/51 L Pulse Oximetry 97 100 99 05/11/18 18:15 05/11/18 18:30 05/11/18 20:00 Temperature Pulse Rate 104 H 105 H 99 H Respiratory Rate 20 20 19 Blood Pressure 90/44 L 90/44 L 74/35 L Pulse Oximetry 96 90 L 05/11/18 20:35 05/11/18 22:00 05/11/18 23:20 Temperature 91.8 F L Pulse Rate 94 H 101 H Respiratory Rate 16 20 Blood Pressure 100/56 L Pulse Oximetry 92 L 99 05/11/18 23:22 05/11/18 23:32 05/11/18 23:37 Temperature 91.5 F L 91 F L Pulse Rate 100 H Respiratory Rate 17 20 Blood Pressure 92/51 L Pulse Oximetry 100 100 05/12/18 00:00 05/12/18 00:08 05/12/18 00:30 Temperature 91.8 F L 92 F L 92.1 F L Pulse Rate 101 H 101 H 101 H Respiratory Rate 21 21 21 Blood Pressure 113/71 113/71 111/57 L Pulse Oximetry 99 97 92 L 05/12/18 00:50 05/12/18 01:33 05/12/18 02:00 Temperature 92.3 F L 93 F L Pulse Rate 104 H 108 H 109 H Respiratory Rate 24 22 Blood Pressure 109/57 L 100/51 L Pulse Oximetry 96 92 L 05/12/18 02:10 05/12/18 02:35 05/12/18 02:45 Temperature 93.4 F L 93.5 F L Pulse Rate 109 H 110 H Respiratory Rate 22 22 Blood Pressure 105/56 L 99/54 L 97/57 L Pulse Oximetry 99 98 05/12/18 03:00 05/12/18 03:11 05/12/18 03:15 Temperature 93.7 F L 93.7 F L 93.9 F L Pulse Rate 111 H 110 H 111 H Respiratory Rate 25 H 23 23 Blood Pressure 101/59 L 101/59 L 98/55 L Pulse Oximetry 96 94 L 94 L 05/12/18 03:30 05/12/18 03:45 05/12/18 04:00 Temperature 94.1 F L 94.3 F L 94.5 F L Pulse Rate 113 H 110 H 113 H Respiratory Rate 23 31 H 23 Blood Pressure 91/55 L 106/55 L 101/54 L Pulse Oximetry 95 93 L 97 05/12/18 04:15 05/12/18 04:27 05/12/18 04:30 Temperature 94.8 F L 95.0 F L Pulse Rate 113 H 113 H Respiratory Rate 24 24 22 Blood Pressure 95/50 L 101/52 L Pulse Oximetry 96 96 96 05/12/18 04:45 05/12/18 05:00 05/12/18 05:15 Temperature 95.2 F L 95.4 F L 95.7 F L Pulse Rate 113 H 113 H 111 H Respiratory Rate 24 24 23 Blood Pressure 101/52 L 87/51 L 90/53 L Pulse Oximetry 95 93 L 94 L 05/12/18 05:19 05/12/18 05:30 05/12/18 05:45 Temperature 95.7 F L 95.9 F L 96.1 F L Pulse Rate 111 H 110 H 109 H Respiratory Rate 23 16 23 Blood Pressure 90/53 L 90/52 L 89/54 L Pulse Oximetry 94 L 93 L 94 L 05/12/18 06:00 05/12/18 06:15 05/12/18 06:30 Temperature 96.3 F L 96.4 F L 96.6 F L Pulse Rate 109 H 107 H 106 H Respiratory Rate 23 23 21 Blood Pressure 84/48 L 84/49 L 84/50 L Pulse Oximetry 93 L 93 L 93 L 05/12/18 06:45 05/12/18 07:00 05/12/18 07:09 Temperature 96.8 F L 97.0 F L 97.1 F L Pulse Rate 107 H 107 H 109 H Respiratory Rate 21 21 21 Blood Pressure 87/49 L 88/49 L 88/49 L Pulse Oximetry 92 L 93 L 94 L 05/12/18 07:15 05/12/18 07:20 05/12/18 07:30 Temperature 97.2 F L 97.3 F L 97.3 F L Pulse Rate 109 H 110 H 110 H Respiratory Rate 22 22 23 Blood Pressure 93/53 L 93/53 L 88/51 L Pulse Oximetry 96 93 L 05/12/18 07:37 05/12/18 07:45 05/12/18 08:00 Temperature 97.3 F L 97.3 F L 97.5 F L Pulse Rate 109 H 109 H 109 H Respiratory Rate 23 21 Blood Pressure 88/51 L 82/44 L 88/52 L Pulse Oximetry 98 95 05/12/18 08:15 05/12/18 08:30 05/12/18 08:45 Temperature 97.5 F L 97.5 F L 97.7 F Pulse Rate 110 H 109 H 109 H Respiratory Rate 24 23 24 Blood Pressure 89/52 L 83/51 L 80/51 L Pulse Oximetry 98 97 97 05/12/18 09:00 05/12/18 10:49 05/12/18 10:58 Temperature 97.7 F 97.5 F L Pulse Rate 109 H 110 H 109 H Respiratory Rate 24 28 H Blood Pressure 91/45 L Pulse Oximetry 97 90 L 05/12/18 11:17 05/12/18 11:29 05/12/18 11:39 Temperature 97.3 F L 97.1 F L 97.1 F L Pulse Rate 109 H 109 H 108 H Respiratory Rate 31 H 31 H Blood Pressure 91/51 L 89/48 L 94/53 L Pulse Oximetry 91 L 89 L 05/12/18 11:50 05/12/18 12:32 Temperature 97 F L Pulse Rate 110 H Respiratory Rate 30 H Blood Pressure 100/50 L Pulse Oximetry 93 L 91 L Intake & Output 05/11/18 05/12/18 05/12/18 18:59 06:59 18:59 Intake Total 6118 / 6118 5187 / 5187 Output Total 615 / 615 Balance 5503 / 5503 5187 / 5187 Weight 88.904 kg 102.5 kg Intake: IV 3800 / 3800 2787 / 2787 SandoSTATIN Inj 500 MCG In NS 515 / 515 Inj 500 ML @ 50 MCG/HR 50.05 mls/hr IV.CONT .Q10H [facility] Rx#: [id number] Sodium Bicarbonate 8.4% Inj 100 2000 / 2000 MEQ In D5W Inj 900 ML @ 84 mls /hr IV.CONT .[id number] [facility] Rx#: [id number] Levophed-Dextrose 4 mg/250 ml 750 / 750 250 / 250 Drip 4 mg In 250 ml @ 2 MCG/MIN 7.5 mls/hr IV.SIG TITRATE PRN Rx#:[id number] Protonix Inj 80 MG In NS Inj 35 35 / 35 ML @ 420 mls/hr IV.SIG BOLUS ONE Rx#:[id number] Vitamin K Inj 10 MG In NS Inj 51 / 51 50 ML @ 102 mls/hr IV.SIG ONCE ONE Rx#:[id number] NS Inj 2,000 ML @ As Directed 1999 / 1999 IV.SIG BOLUS ONE Rx#:[id number] Thiamine Inj 100 MG In NS Inj 101 / 101 100 ML @ 100 mls/hr IV.SIG DAILY [facility] Rx#:[id number] Vancomycin Inj 2,000 MG In NS 535 / 535 Inj 500 ML @ 250 mls/hr IV.SIG ONCE ONE Rx#:[id number] Other 135 / 135 Plasma Thawed 5 Day Acda Unit 85 / 85 [id number] Plasma Thawed 5 Day Cp2d Unit 50 / 50 [id number] Intake (Blood Product) Amt 2183 / 2183 2400 / 2400 Plasma Thawed 5 Day Acda Unit 227 / 227 [id number] Plasma Thawed 5 Day Cp2d Unit 313 / 313 [id number] Plasma Thawed 5 Day Cp2d Unit 300 / 300 [id number] Plasma Thawed 5 Day Cp2d Unit 287 / 287 [id number] Plasma Thawed 5 Day Cp2d Unit 338 / 338 [id number] Plasma Thawed 5 Day Cp2d Unit 318 / 318 [id number] Pre-Pooled Cryo Thawed 10units 0 / 0 Unit [id number] Rbc As-3 Leukoreduced Unit 0 / 0 400 / 400 [id number] Rbc As-3 Leukoreduced Unit 400 / 400 [id number] Rbc As-3 Leukoreduced Unit 400 / 400 [id number] Rbc As-3 Leukoreduced Unit 400 / 400 [id number] Rbc As-3 Leukoreduced Unit 400 / 400 [id number] Rbc As-3 Leukoreduced Unit 400 / 400 [id number] Rbc As-3 Leukoreduced Unit 400 / 400 [id number] Output: Urine 165 / 165 Gastric Drainage 450 / 450 Orogastric Tube 450 / 450 Other: Weight On Admission 95.5 kg - Urinary Catheter Management Indwelling Urethral Catheter Cath placed during this visit: yes Reason for continuing: Other continuation reason Insertion date: 05/11/18 Insertion time: 20:15 Results - Labs CBC & Chem 7: 05/12/18 09:25 05/12/18 09:25 Laboratory Results - last 24 hr 05/11/18 05/11/18 05/11/18 14:50 14:50 14:50 WBC 18.5 H RBC 2.08 L Hgb 7.5 L Hct 22.1 L MCV 106.2 H MCH 35.9 H MCHC 33.8 RDW 15.1 Plt Count 169 MPV 9.1 Prelim Diff (Auto) Slide review pending Neut % (Auto) 80.9 H Lymph % (Auto) 8.3 L [place] % (Auto) 10.4 H Eos % (Auto) 0.2 Baso % (Auto) 0.2 Neut # (Auto) 15.0 H Lymph # (Auto) 1.5 [place] # (Auto) 1.9 H Eos # (Auto) 0.0 Baso # (Auto) 0.0 WBC Differential . Diff Scan Auto diff confirmed Seg Neuts % (Manual) Band Neuts % (Manual) Lymphocytes % (Manual) Monocytes % (Manual) Metamyelocytes % (Man) Abs Neuts (Manual) Nucleated RBCs/100 WBC Differential Comment . Toxic Granulation Toxic Vacuolation Platelet Estimate Normal Platelet Morphology Normal Polychromasia Ovalocytes Acanthocytes (Spur) PT 19.8 H INR 2.0 APTT 31.0 H Fibrinogen Puncture Site Patient Temperature O2 Saturation ABG pH ABG pCO2 ABG pO2 ABG HCO3 ABG O2 Content ABG Base Excess ABG Methemoglobin Jatin Test Hemoglobin Carboxyhemoglobin O2 Delivery Device Vent Setting Inspired O2 Critical Value Sodium 127 L Potassium 4.7 Chloride 89 L Carbon Dioxide 14.8 L Anion Gap 23 H BUN 44 H Creatinine 2.13 H Estimated GFR 31 L Random Glucose 82 Lactic Acid Calcium 7.8 L Prot Corrected Calcium Phosphorus Magnesium 2.3 Total Bilirubin 4.5 H AST 108 H ALT 45 Alkaline Phosphatase 137 H Ammonia Lactate Dehydrogenase Total Protein 5.2 L D Albumin 1.7 L Urine Color Urine Clarity Urine pH Ur Specific Young Urine Protein Urine Glucose (UA) Urine Ketones Urine Occult Blood Urine Nitrate Urine Bilirubin Urine Urobilinogen Ur Leukocyte Esterase Urine RBC Urine WBC Hyaline Casts Micro UA Comment Ur Microscopic Review Urine Culture Comments Nasal Screen MRSA (PCR) Blood Type Antibody Screen [facility] Blood [facility] Comment 05/11/18 05/11/18 05/11/18 14:50 15:50 15:50 WBC RBC Hgb Hct MCV MCH MCHC RDW Plt Count MPV Prelim Diff (Auto) Neut % (Auto) Lymph % (Auto) [place] % (Auto) Eos % (Auto) Baso % (Auto) Neut # (Auto) Lymph # (Auto) [place] # (Auto) Eos # (Auto) Baso # (Auto) WBC Differential Diff Scan Seg Neuts % (Manual) Band Neuts % (Manual) Lymphocytes % (Manual) Monocytes % (Manual) Metamyelocytes % (Man) Abs Neuts (Manual) Nucleated RBCs/100 WBC Differential Comment Toxic Granulation Toxic Vacuolation Platelet Estimate Platelet Morphology Polychromasia Ovalocytes Acanthocytes (Spur) PT INR APTT Fibrinogen Puncture Site Patient Temperature O2 Saturation ABG pH ABG pCO2 ABG pO2 ABG HCO3 ABG O2 Content ABG Base Excess ABG Methemoglobin Jatin Test Hemoglobin Carboxyhemoglobin O2 Delivery Device Vent Setting Inspired O2 Critical Value Sodium Potassium Chloride Carbon Dioxide Anion Gap BUN Creatinine Estimated GFR Random Glucose Lactic Acid 12.7 H* Calcium Prot Corrected Calcium Phosphorus Magnesium Total Bilirubin AST ALT Alkaline Phosphatase Ammonia 14 Lactate Dehydrogenase Total Protein Albumin Urine Color Urine Clarity Urine pH Ur Specific [place] Urine Protein Urine Glucose (UA) Urine Ketones Urine Occult Blood Urine Nitrate Urine Bilirubin Urine Urobilinogen Ur Leukocyte Esterase Urine RBC Urine WBC Hyaline Casts Micro UA Comment Ur Microscopic Review Urine Culture Comments Nasal Screen MRSA (PCR) Blood Type A Positive Antibody Screen Negative [facility] Comment 05/11/18 05/11/18 05/11/18 15:55 20:00 21:15 WBC RBC Hgb Hct MCV MCH MCHC RDW Plt Count MPV Prelim Diff (Auto) Neut % (Auto) Lymph % (Auto) [place] % (Auto) Eos % (Auto) Baso % (Auto) Neut # (Auto) Lymph # (Auto) [place] # (Auto) Eos # (Auto) Baso # (Auto) WBC Differential Diff Scan Seg Neuts % (Manual) Band Neuts % (Manual) Lymphocytes % (Manual) Monocytes % (Manual) Metamyelocytes % (Man) Abs Neuts (Manual) Nucleated RBCs/100 WBC Differential Comment Toxic Granulation Toxic Vacuolation Platelet Estimate Platelet Morphology Polychromasia Ovalocytes Acanthocytes (Spur) PT INR APTT Fibrinogen Puncture Site Patient Temperature O2 Saturation ABG pH ABG pCO2 ABG pO2 ABG HCO3 ABG O2 Content ABG Base Excess ABG Methemoglobin Jatin Test Hemoglobin Carboxyhemoglobin O2 Delivery Device Vent Setting Inspired O2 Critical Value Sodium Potassium Chloride Carbon Dioxide Anion Gap BUN Creatinine Estimated GFR Random Glucose Lactic Acid Calcium Prot Corrected Calcium Phosphorus Magnesium Total Bilirubin AST ALT Alkaline Phosphatase Ammonia Lactate Dehydrogenase 488 H Total Protein 4.8 L Albumin Urine Color [place] Urine Clarity Cloudy H Urine pH 5.0 Ur Specific Young 1.017 Urine Protein Negative Urine Glucose (UA) Negative Urine Ketones Negative Urine Occult Blood Small H Urine Nitrate Negative Urine Bilirubin Negative Urine Urobilinogen 4 or greater Ur Leukocyte Esterase Negative Urine RBC 1 Urine WBC 14 H Hyaline Casts 38 Micro UA Comment Culture indicated Ur Microscopic Review Not Reportable Urine Culture Comments Culture indicated Nasal Screen MRSA (PCR) Not detected Blood Type Antibody Screen MTS Gel Crossmatch Blood Bank Comment 05/11/18 05/11/18 05/11/18 21:15 21:15 21:15 WBC 22.7 H RBC 1.79 L Hgb 6.4 L* Hct 20.1 L* MCV 112.5 H D MCH 36.0 H MCHC 32.0 RDW 15.6 Plt Count 155 MPV 8.8 Prelim Diff (Auto) Neut % (Auto) Lymph % (Auto) [place] % (Auto) Eos % (Auto) Baso % (Auto) Neut # (Auto) Lymph # (Auto) [place] # (Auto) Eos # (Auto) Baso # (Auto) WBC Differential Diff Scan Seg Neuts % (Manual) Band Neuts % (Manual) Lymphocytes % (Manual) Monocytes % (Manual) Metamyelocytes % (Man) Abs Neuts (Manual) Nucleated RBCs/100 WBC Differential Comment Toxic Granulation Toxic Vacuolation Platelet Estimate Platelet Morphology Polychromasia Ovalocytes Acanthocytes (Spur) PT 24.5 H INR 2.4 APTT 53.0 H D Fibrinogen Puncture Site Patient Temperature O2 Saturation ABG pH ABG pCO2 ABG pO2 ABG HCO3 ABG O2 Content ABG Base Excess ABG Methemoglobin Jatin Test Hemoglobin Carboxyhemoglobin O2 Delivery Device Vent Setting Inspired O2 Critical Value Sodium Potassium Chloride Carbon Dioxide Anion Gap BUN Creatinine Estimated GFR Random Glucose Lactic Acid 18.6 H* Calcium Prot Corrected Calcium Phosphorus Magnesium Total Bilirubin AST ALT Alkaline Phosphatase Ammonia Lactate Dehydrogenase Total Protein Albumin Urine Color Urine Clarity Urine pH Ur Specific [place] Urine Protein Urine Glucose (UA) Urine Ketones Urine Occult Blood Urine Nitrate Urine Bilirubin Urine Urobilinogen Ur Leukocyte Esterase Urine RBC Urine WBC Hyaline Casts Micro UA Comment Ur Microscopic Review Urine Culture Comments Nasal Screen MRSA (PCR) Blood Type Antibody Screen MTS Gel Crossmatch Blood Bank Comment 05/11/18 05/11/18 05/12/18 22:14 22:15 01:22 WBC RBC Hgb Hct MCV MCH MCHC RDW Plt Count MPV Prelim Diff (Auto) Neut % (Auto) Lymph % (Auto) [place] % (Auto) Eos % (Auto) Baso % (Auto) Neut # (Auto) Lymph # (Auto) [place] # (Auto) Eos # (Auto) Baso # (Auto) WBC Differential Diff Scan Seg Neuts % (Manual) Band Neuts % (Manual) Lymphocytes % (Manual) Monocytes % (Manual) Metamyelocytes % (Man) Abs Neuts (Manual) Nucleated RBCs/100 WBC Differential Comment Toxic Granulation Toxic Vacuolation Platelet Estimate Platelet Morphology Polychromasia Ovalocytes Acanthocytes (Spur) PT INR APTT Fibrinogen Puncture Site Left radial Patient Temperature 98.6 O2 Saturation 85 L* ABG pH 6.92 L* ABG pCO2 39 ABG pO2 92 ABG HCO3 8 L* ABG O2 Content 6.3 L ABG Base Excess -22.3 L ABG Methemoglobin 2.1 H Jatin Test Present Hemoglobin 5.1 L* Carboxyhemoglobin 0.9 O2 Delivery Device Ventilator Vent Setting Comment Inspired O2 70 Critical Value Yes Sodium Potassium Chloride Carbon Dioxide Anion Gap BUN Creatinine Estimated GFR Random Glucose Lactic Acid Calcium Prot Corrected Calcium Phosphorus Magnesium Total Bilirubin AST ALT Alkaline Phosphatase Ammonia Lactate Dehydrogenase Total Protein Albumin Urine Color Urine Clarity Urine pH Ur Specific [place] Urine Protein Urine Glucose (UA) Urine Ketones Urine Occult Blood Urine Nitrate Urine Bilirubin Urine Urobilinogen Ur Leukocyte Esterase Urine RBC Urine WBC Hyaline Casts Micro UA Comment Ur Microscopic Review Urine Culture Comments Nasal Screen MRSA (PCR) Blood Type Antibody Screen MTS Gel Crossmatch See Detail Blood Bank Comment 05/12/18 05/12/18 05/12/18 09:25 09:25 09:25 WBC 14.6 H RBC 1.75 L Hgb 5.7 L* Hct 17.6 L* MCV 100.5 H D MCH 32.6 MCHC 32.5 RDW 18.9 H D Plt Count 75 L D MPV 8.7 Prelim Diff (Auto) Slide review pending Neut % (Auto) 79.3 H Lymph % (Auto) 15.3 [place] % (Auto) 4.3 Eos % (Auto) 0.1 Baso % (Auto) 1.0 Neut # (Auto) 11.6 H Lymph # (Auto) 2.2 [place] # (Auto) 0.6 Eos # (Auto) 0.0 Baso # (Auto) 0.1 WBC Differential Manual diff final Diff Scan Seg Neuts % (Manual) 46 Band Neuts % (Manual) 32 H Lymphocytes % (Manual) 10 Monocytes % (Manual) 8 Metamyelocytes % (Man) 4 H Abs Neuts (Manual) 12.0 H Nucleated RBCs/100 WBC 1 H Differential Comment . Toxic Granulation 1+ H Toxic Vacuolation Present H Platelet Estimate Low L Platelet Morphology Enlarged H Polychromasia 2.0 H Ovalocytes 1+ H Acanthocytes (Spur) 1+ H PT INR APTT 73.2 H D Fibrinogen Puncture Site Patient Temperature O2 Saturation ABG pH ABG pCO2 ABG pO2 ABG HCO3 ABG O2 Content ABG Base Excess ABG Methemoglobin Jatin Test Hemoglobin Carboxyhemoglobin O2 Delivery Device Vent Setting Inspired O2 Critical Value Sodium 127 L Potassium 5.5 H D Chloride 89 L Carbon Dioxide 13.5 L Anion Gap 25 H BUN 42 H Creatinine 2.59 H Estimated GFR 25 L Random Glucose 164 H Lactic Acid Calcium 6.3 L* D Prot Corrected Calcium 8.5 Phosphorus 8.6 H Magnesium 2.2 Total Bilirubin AST ALT Alkaline Phosphatase Ammonia Lactate Dehydrogenase Total Protein 3.1 L D Albumin Urine Color Urine Clarity Urine pH Ur Specific [place] Urine Protein Urine Glucose (UA) Urine Ketones Urine Occult Blood Urine Nitrate Urine Bilirubin Urine Urobilinogen Ur Leukocyte Esterase Urine RBC Urine WBC Hyaline Casts Micro UA Comment Ur Microscopic Review Urine Culture Comments Nasal Screen MRSA (PCR) Blood Type Antibody Screen MTS Gel Crossmatch Blood Bank Comment 05/12/18 05/12/18 05/12/18 09:25 09:25 09:25 WBC RBC Hgb Hct MCV MCH MCHC RDW Plt Count MPV Prelim Diff (Auto) Neut % (Auto) Lymph % (Auto) [place] % (Auto) Eos % (Auto) Baso % (Auto) Neut # (Auto) Lymph # (Auto) [place] # (Auto) Eos # (Auto) Baso # (Auto) WBC Differential Diff Scan Seg Neuts % (Manual) Band Neuts % (Manual) Lymphocytes % (Manual) Monocytes % (Manual) Metamyelocytes % (Man) Abs Neuts (Manual) Nucleated RBCs/100 WBC Differential Comment Toxic Granulation Toxic Vacuolation Platelet Estimate Platelet Morphology Polychromasia Ovalocytes Acanthocytes (Spur) PT 20.2 H INR 2.0 APTT Fibrinogen 102 L Puncture Site Patient Temperature O2 Saturation ABG pH ABG pCO2 ABG pO2 ABG HCO3 ABG O2 Content ABG Base Excess ABG Methemoglobin Jatin Test Hemoglobin Carboxyhemoglobin O2 Delivery Device Vent Setting Inspired O2 Critical Value Sodium Potassium Chloride Carbon Dioxide Anion Gap BUN Creatinine Estimated GFR Random Glucose Lactic Acid 16.9 H* Calcium Prot Corrected Calcium Phosphorus Magnesium Total Bilirubin AST ALT Alkaline Phosphatase Ammonia Lactate Dehydrogenase Total Protein Albumin Urine Color Urine Clarity Urine pH Ur Specific [place] Urine Protein Urine Glucose (UA) Urine Ketones Urine Occult Blood Urine Nitrate Urine Bilirubin Urine Urobilinogen Ur Leukocyte Esterase Urine RBC Urine WBC Hyaline Casts Micro UA Comment Ur Microscopic Review Urine Culture Comments Nasal Screen MRSA (PCR) Blood Type Antibody Screen MTS Gel Crossmatch Blood Bank Comment 05/12/18 05/12/18 05/12/18 09:50 10:10 10:17 WBC RBC Hgb Hct MCV MCH MCHC RDW Plt Count MPV Prelim Diff (Auto) Neut % (Auto) Lymph % (Auto) [place] % (Auto) Eos % (Auto) Baso % (Auto) Neut # (Auto) Lymph # (Auto) [place] # (Auto) Eos # (Auto) Baso # (Auto) WBC Differential Diff Scan Seg Neuts % (Manual) Band Neuts % (Manual) Lymphocytes % (Manual) Monocytes % (Manual) Metamyelocytes % (Man) Abs Neuts (Manual) Nucleated RBCs/100 WBC Differential Comment Toxic Granulation Toxic Vacuolation Platelet Estimate Platelet Morphology Polychromasia Ovalocytes Acanthocytes (Spur) PT INR APTT Fibrinogen Puncture Site Art line Patient Temperature 98.6 O2 Saturation 91 ABG pH 6.97 L* ABG pCO2 44 H ABG pO2 97 ABG HCO3 10 L* ABG O2 Content 7.5 L ABG Base Excess -19.8 L ABG Methemoglobin 2.4 H Jatin Test Hemoglobin 5.7 L* Carboxyhemoglobin 1.3 O2 Delivery Device Ventilator Vent Setting Prvc/ac 550/22 Inspired O2 100 Critical Value Yes Sodium Potassium Chloride Carbon Dioxide Anion Gap BUN Creatinine Estimated GFR Random Glucose Lactic Acid Calcium Prot Corrected Calcium Phosphorus Magnesium Total Bilirubin AST ALT Alkaline Phosphatase Ammonia Lactate Dehydrogenase Total Protein Albumin Urine Color Urine Clarity Urine pH Ur Specific [place] Urine Protein Urine Glucose (UA) Urine Ketones Urine Occult Blood Urine Nitrate Urine Bilirubin Urine Urobilinogen Ur Leukocyte Esterase Urine RBC Urine WBC Hyaline Casts Micro UA Comment Ur Microscopic Review Urine Culture Comments Nasal Screen MRSA (PCR) Blood Type Antibody Screen MTS Gel Crossmatch See Detail Blood Bank Comment Microbiology 05/11/18 15:50 Blood - Peripheral Aerobic Blood Culture - Preliminary No growth in 1 day 05/11/18 15:50 Blood - Peripheral Anaerobic Blood Culture - Preliminary No growth in 1 day 05/11/18 15:45 Blood - Peripheral Aerobic Blood Culture - Preliminary No growth in 1 day 05/11/18 15:45 Blood - Peripheral Anaerobic Blood Culture - Preliminary No growth in 1 day 05/11/18 15:55 Clean Catch Urine Urine Culture - Preliminary No growth in 24 hours 05/11/18 21:15 Sputum - Endotracheal Gram Stain - Final - Imaging Impressions Chest X-Ray 05/11/18 00:00 CONCLUSION: ET tube in good position. Left subclavian line in good position. Hazy density at the mid and lower left lung secondary to consolidation, atelectasis and/or effusion. Mild atelectasis or consolidation at the right base. Head CT 05/11/18 14:39 CONCLUSION: 1. No acute findings. . Chest X-Ray 05/11/18 14:40 CONCLUSION: Left lung infiltrate. Assessment and Plan - Plan Cirrhosis secondary to ETOH abuse- reports he quit drinking a few weeks ago Sent to the hospital for admission after being evaluated at the GI office today, complaints of abdominal pain and swelling for the past few weeks as well as BLE swelling. Pt denies previous paracentesis. He is on diuretics OP, Spironolactone and Lasix. Pt denies nausea, vomiting, changes in bowel habits, blood in his stool Coagulopathy and hypoalbuminemia secondary to cirrhosis. No thrombocytopenia. Previous liver work up: VALENTINE, ASMA, AMA negative. Hepatitis panel negative. Celiac panel negative. Iron -50 TIBC-211 %sat-23.7 Ferritin-394 Ceruloplasmin-23 - Sepsis, likely SBP - Anemia- currently bleeding slowly from the NG tube. Plan: US paracentesis when more stable Agree with broad spectrum antibiotics coverage. Monitor LFTs Avoid hepatotoxins DF- 40, no steroids, currently septic Electrolyte replacement per primary team Lactulose Xifaxan Monitor ammonia Serial HH Supportive care Not a candidate for liver transplantation at the current time. Diuretics on hold, electrolyte imbalance, impaired renal function Further recommendations to follow
[2018-05-12] MEDS ORDERED: Dextrose 50% in Water 50 ML Vial IV.PUSH ONE (13:51)
[2018-05-12] MEDS ORDERED: Sodium Polystyrene Sulfonate/Sorbitol Liq 15 GM/60 ML UDC PO ONE (13:52)
[2018-05-12] MEDS: Epoprostenol (30,000/mL) Neb 100 ML in Sodium Chlor 0.9% Inj 0 ML NEB SCH ×2 (14:02→23:15)
[2018-05-12] MEDS ORDERED: RESP: Albuterol Concentrated 2.5 MG/0.5 ML Neb NEB ONE (14:15)
[2018-05-12] MEDS ORDERED: Calcium Chloride Inj 1 GM in Sodium Chlor 0.9% Inj 100 ML IV.SIG ONE (14:30)
[2018-05-12 14:36] LABS: Hematocrit 26.2 % (39.0-51.0); Hemoglobin 8.4 gm/dL (13.0-17.0)
[2018-05-12] MEDS: Vasopressin Inj 40 UNIT in Dextrose 5% in Water Inj 98 ML IV.CONT PRN ×2 (14:43)
[2018-05-12] MEDS: Hydrocortisone Sod Succinate 100 MG Vial IV.PUSH SCH ×2 (14:45→21:52)
[2018-05-12 15:48] LABS: ABG Base Excess -16.3 mmol/L (-2-2); ABG PCO2 57 mmHg (38-42); ABG PO2 57 mmHG (61-120)
[2018-05-12 16:25] VITALS: RESP 28
--- NOTE | 2018-05-12 16:26 | P.PCN ---
Date of procedure: 05/12/18 Pre-op diagnosis: Severe shock Post-op diagnosis: same Procedure: DATE: 05/12/2018 PROCEDURE: Right femoral arterial catheter placement INDICATION: Acute/severe shock DETAILS OF PROCEDURE The patient was placed in supine position. The skin was cleansed with Chloraprep. Additional barrier precautions included large sterile drape, sterile gloves, sterile gown, face mask, and hat. 1% lidocaine was used for local anesthesia. Under direct ultrasound guidance and on the second attempt, the artery was accessed with an introducer needle. The guide wire was advanced. Using Seldinger technique 20 gauge arterial 12 cm catheter was placed. The guide wire was removed. The catheter was connected to a transducer line and flushed with saline. The video monitor displayed normal arterial wave forms. The catheter was secured with 2-0 silk. A sterile dressing with antibiotic disc was applied. ESTIMATED BLOOD LOSS: minimal COMPLICATIONS: None
[2018-05-12 19:19] LABS: Hematocrit 23.6 % (39.0-51.0); Hemoglobin 7.7 gm/dL (13.0-17.0)
[2018-05-12 19:58] LABS: Calcium 6.6 mg/dL (8.5-10.1); Carbon Dioxide 15.3 meq/L (21.0-32.0)
[2018-05-12 20:11] LABS: ABG Base Excess -16.7 mmol/L (-2-2); ABG PCO2 51 mmHg (38-42); ABG PO2 45 mmHG (61-120)
[2018-05-12] MEDS: Dextrose 50% in Water 50 ML Vial IV.PUSH PRN ×2 (20:12→22:10)
[2018-05-12 20:19] LABS: Total Protein 2.4 g/dL (6.4-8.2)
[2018-05-12 21:08] VITALS: O2SAT 80
[2018-05-12] MEDS ORDERED: Vancomycin Inj 1,250 MG in Sodium Chlor 0.9% Inj 250 ML IV.SIG SCH (22:00)
[2018-05-12 22:46] VITALS: BP 105/32; TEMP 97
[2018-05-12 22:48] VITALS: PULSE 92
--- NOTE | 2018-05-30 17:52 | P.DN ---
Discharge Sum: Prov - Provider Primary care physician: Steven Freeman Admitting clinician: Mike Gross Attending physician on admission: Mike Gross Consults: Gastroenterology Pronouncing clinician: Eb Kaplan Discharge Sum: Diag Discharge Sum: Summary - Date and Time Date of admission: 05/11/18 17:03 Date of : 05/12/00 Time of : 17:52 - Summary Procedures: Central line placement Arterial line placement Brief History: This 62-year-old gentleman with long-standing alcoholic cirrhosis including varices and ascites has an unclear history for the past several weeks. He is developed extensive edema in his lower extremities extending up to the groin. He has fallen recently and has a mild erythema to his right lateral abdominal wall. He presently is encephalopathic although does appear to answer some simple questions accurately. 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 On arrival he has a white count of 18,000 and tachycardia. Although he is grossly swollen and edematous his neck veins are flat. Lactic acid is 12.7. Several medications have been ordered by the gastroenterology service and I will attempt to fill in the gaps. Result Diagrams: 05/12/18 19:07 05/12/18 19:07 Significant Findings: Microbiology 05/11/18 15:50 Blood - Peripheral Aerobic Blood Culture - Final No growth in 5 days 05/11/18 15:50 Blood - Peripheral Anaerobic Blood Culture - Final No growth in 5 days 05/11/18 15:45 Blood - Peripheral Aerobic Blood Culture - Final No growth in 5 days 05/11/18 15:45 Blood - Peripheral Anaerobic Blood Culture - Final No growth in 5 days 05/11/18 21:15 Sputum - Endotracheal Gram Stain - Final 05/11/18 21:15 Sputum - Endotracheal Sputum Culture - Final Heavy growth normal respiratory jeanie 05/11/18 15:55 Clean Catch Urine Urine Culture - Final No growth in 48 hours Imaging: Chest X-Ray 05/11/18 00:00 CONCLUSION: ET tube in good position. Left subclavian line in good position. Hazy density at the mid and lower left lung secondary to consolidation, atelectasis and/or effusion. Mild atelectasis or consolidation at the right base. Head CT 05/11/18 14:39 CONCLUSION: 1. No acute findings. . Chest X-Ray 05/11/18 14:40 CONCLUSION: Left lung infiltrate. Hospital Course: Neuro/Psych: Acute toxic metabolic encephalopathy Currently off all sedation not following commands. Propofol/fentanyl drips as needed for sedation/analgesia while intubated Goal of RA SS -[address] brain on admission 05/11 revealed no acute intracranial findings Thiamine 100 mg IV daily CV: Severe sepsis Lactic acidosis Currently D5 water will switch to sterile water with 3 ampules of bicarbonate 100cc an hour Norepinephrine currently at 24 m/min/vasopressin 0.04 U/min to maintain mean arterial pressure greater or equal to 65 Serial lactates until cleared Check Limited 2D echocardiogram Respiratory: Acute respiratory failure Ongoing tobaccoism Tobacco sensation self-evaluation cessation booklet will provide when clinically indicated PRVC / Ventilator bundle Albuterol/ipratropium aerosols every 4 hours with albuterol aerosols every 2 hours as needed for dyspnea Follow-up on chest x-ray and ABG Renal: Acute kidney injury A.m. labs pending Check urine eosinophils, sodium and creatinine. 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 3 times daily with rifaximin 550 mg 2 times daily. Recheck ammonia level in a.m. 8 -No sedation -Paracentesis for diagnostic and therapeutic purposes has been ordered by the GI service. -Serial hemoglobin determination -Check coagulation profile -Pantoprazole drip at 8 mg an hour with octreotide drip at 50 mcg/hr DF 40 yesterday with high meld score. We calculated in a.m. ID: SBP? Severe sepsis -Broad coverage for possible SBP with cefotaxime 1 g every 8 hour/renally dosed with vancomycin -Blood urine and sputum cultures 05/11 all pending HEME: Leukocytosis Macrocytic anemia Acute coagulopathy Received 3 PRBCs and 6 FFP overnight. 10 mg phytonadione IV times now. Recheck coags, fibrinogen in hemoglobin now stat. Serial hemoglobins and coags Prophylaxis: -Pantoprazole for GI ulcer prophylaxis -Avoid chemical DVT prophylaxis due to high risk of bleeding -SCDs Patient became more hypotensive despite multiple vasopressor therapy. NOAH FRIED was called at 2220. [place] [address] Kaplan
== END 2018-05-12 22:30 | disposition expired ==
LOC: NEPC 13:07 → NEDA 17:03 → HIMC 19:55
PROVIDERS: ADMIT Surgery Surgical Critical Care; ATTEND Surgery Surgical Critical Care